=== PATIENT | male | born 1965 | race Caucasian/White ===

== ENCOUNTER 2019-01-28 10:51 | Inpatient (IN) | payer MEDICARE ==
[~2019-01-28] VITALS: Ht 165.1 cm; Wt 84.9 kg
[~2019-01-28 10:51] MED LIST: ASPIR 8181 MG PO; OMEPRAZOLE40 MG PO; OXYCODONE-ACET1 EAC1 PO
--- OUTSIDE RECORDS SUMMARY | 2019-01-28 10:53 | XMS REPORT ---
Author Author [facility] [place] Address Unknown Phone Unavailable Care Team Providers Care Therapeutic Recreation Specialist Name Role Phone EVER RODRIGUEZ Unavailable Unavailable Payers Payer Name Policy Type Policy Number Effective Date Expiration Date Problems This patient has no known problems. Allergies, Adverse Reactions, Alerts Allergy Name Allergy Type Status Severity Reaction(s) Onset Date Inactive Date Treating Clinician Comments No Known Allergies DA Active U 2018-08-12 00:00:00 Medications This patient has no known medications. Results Test Description Test Time Test Comments Text Results Atomic Results Result Comments MRI BRAIN WO [place] [address] Patient Name: LEONA BARTH MR #: [id number] : 1965 Age/Sex: 52/M Req #: [id number] Adm Physician: EVER RODRIGUEZ MD Ordered by: ERNESTO SRINIVASAN MD Report #: [id number] Location: [facility] Room/Bed: [place] [address] Procedure: [id number] MRI/MRI BRAIN WO Exam Date: 10/11/17 Exam Time: 1525 REPORT STATUS: Signed Exam: Brain MRI without IV contrast History: Memory problems, aphasia Comparison studies: Head CT of 10/11/2017 at 8:41 AM. Technique: Sagittal T2; axial DWI, FLAIR, T2*GRE, T1, Coronal T2 FLAIR. Intravenous contrast: None Findings: Scalp: Normal in signal . No masses . Bone marrow: Normal in signal intensity. Brain sulci: Appropriate for age. Ventricles: Normal in size. No hydrocephalus. Extra axial spaces: No mass, no fluid collection. Parenchyma: Restricted diffusion in the posterior left superior and middle temporal gyri which extends posteriorly to the angular gyrus of the left inferior parietal lobule consistent with acute nonhemorrhagic vascular insult in the distal left MCA territory. No mass or hemorrhage. Scattered T2 FLAIR hyperintense foci in the supratentorial white matter are nonspecific but most compatible with chronic small vessel ischemic changes. Small chronic lacunar infarct in the left thalamus. Suprasellar region: No abnormalities. Craniocervical junction: Patent foramen magnum. No Chiari malformation. Vessels: Focal increased T2 FLAIR/T1 signal within posterior left perisylvian M2 and proximal M3 branches may indicate thrombus or slow flow. Normal flow-voids in other major intracranial arteries and dural venous sinuses. IMPRESSION: 1. Unchanged acute left parietotemporal nonhemorrhagic ischemic insult in the left MCA territory with out significant mass effect. Signal abnormality within adjacent left M2/M3 MCA branches may reflect slow flow or thrombus. 2. Mild to moderate supratentorial chronic microvascular ischemic changes. 3. Small chronic left thalamic lacunar infarct. Findings discussed with nurse Srivastava at 5:23 PM on 10/11/2017. Signed by: Dr. Danuta Valentino M.D. on 10/11/2017 5:29 PM Dictated By: DANUTA VALENTINO MD 28 Transcribed By: CRISTINA on 10/11/171728 COPY TO: ERNESTO SRINIVASAN MD CHEST 2 VIEWS [place] [address] Patient Name: LEONA BARTH MR #: [id number] : 1965 Age/Sex: 52/M Req #: [id number] Adm Physician: Ordered by: DINO JACOBSON MD Report #: [id number] Location: ER Room/Bed: Procedure: [id number] DX/CHEST 2 VIEWS Exam Date: 10/11/17 Exam Time: 839 REPORT STATUS: Signed PROCEDURE: X-RAY CHEST, TWO VIEWS COMPARISON: None. INDICATIONS: AMS FINDINGS: LUNGS: No consolidations or edema. PLEURA: No effusions or pneumothorax. HEART T MEDIASTINUM: Cardiomediastinal contour is remarkable for mild tortuosity of the thoracic aorta. Normal heart size. No pulmonary edema. BONES T SOFT TISSUES: No acute findings. CONCLUSION: No acute cardiopulmonary abnormality. Dictated by: Danuta Yusuf M.D. on 10/11/2017 at 9:25 Electronically approved by: Danuta Yusuf M.D. on 10/11/2017 at 9:25 Dictated By: DANUTA YUSUF MD 4 Transcribed By: SEBASTIAN on 10/11/17924 COPY TO: DINO JACOBSON MD CT BRAIN WO [place] [address] Patient Name: LEONA BARTH MR #: [id number] : 1965 Age/Sex: 52/M Req #: [id number] Adm Physician: Ordered by: DINO JACOBSON MD Report #: [id number] Location: ER Room/Bed: Procedure: [id number] CT/CT BRAIN WO Exam Date: 10/11/17 Exam Time: 0840 REPORT STATUS: Signed History:Memory problems and aphasia for 2 days . Comparison studies:None Technique: Axial images were obtained from the skull base to the vertex. Coronal and sagittal images reconstructed from the axial data. Intravenous contrast: None Findings: Scalp/skull: No abnormalities. Extra- axial spaces: No masses. No fluid collections. Brain sulci: Mildly prominent. Ventricles: Mild compensatory dilatation. Asymmetric prominence of the left lateral ventricle. No hydrocephalus. Parenchyma: Cortical- based hypodensity at the left superior temporal gyrus with extension to the angular gyrus with obliteration of the adjacent sulci. Chronic small infarct at the left posterior cerebellar hemisphere. Scattered hypodensities in the supratentorial white matter are small vessel ischemic changes. No masses or hemorrhage, . Sellar/suprasellar region: No abnormalities. Craniocervical junction: Patent foramen magnum. No Chiari one malformation. Incidental findings: Atherosclerotic calcifications in the carotid siphons . Mild mucosal thickening of the lower most left mastoid air cells. Impression: Subacute infarct of the left superior frontal gyrus and angular gyrus, which may explain patient's symptoms. No intracranial hemorrhage. Chronic findings: 1. Mild generalized volume loss. 2. Mild to moderate supratentorial white matter small vessel ischemic changes. The above finding was reported and acknowledged by Dr. Jacobson at 9:10 AM 10/11/2017. Signed by: DR Dov Coppola M.D. on 10/11/2017 9:21 AM Dictated By: DOV MERRITT MD 0 Transcribed By: CRISTINA on 10/11/17920 COPY TO: DINO JACOBSON MD
[2019-01-28] MEDS ORDERED: MORPHINE SULFATE INJ 4 MG/ML INJ 1ML IV STA (10:55)
[2019-01-28] MEDS ORDERED: SODIUM CHLORIDE 0.9% 1000ML 1,000 ML IV STA (10:55)
[2019-01-28] MEDS ORDERED: ONDANSETRON HCL INJ 2MG/ML 2ML 2 MG/ML VIAL IV STA (10:55)
[2019-01-28] MEDS ORDERED: DIATRIZOATE MEGL/DIATRIZOA SOD 30 ML BTL PO ONE (11:10)
[2019-01-28 11:20] LABS: BASOPHILS % 0.3 % (0.0-1.0); EOSINOPHILS % 0.5 % (0.0-6.0); HEMATOCRIT 33.4 % (38.2-49.6); HEMOGLOBIN 10.3 g/dL (14.0-18.0); LYMPHOCYTES # (AUTO) 0.9 (1.0-3.2); LYMPHOCYTES % 11.3 % (18.0-39.1); MEAN CORPUSCULAR HEMOGLOBIN 23.8 pg (28-32); MEAN CORPUSCULAR HGB CONC 30.8 g/dL (31-35); MEAN CORPUSCULAR VOLUME 77.1 fL (81-99); MONOCYTES # (AUTO) 1.2 (0.2-0.8); MONOCYTES % 15.7 % (4.4-11.3); NEUTROPHILS # (AUTO) 5.6 (2.1-6.9); NEUTROPHILS % 71.9 % (38.7-80.0); PLATELET COUNT 502 x10e3/uL (140-360); RED BLOOD COUNT 4.33 x10e6/uL (4.3-5.7); RED CELL DISTRIBUTION WIDTH 17.8 % (11.7-14.4)
[2019-01-28 11:24] LABS: INR 0.87; PARTIAL THROMBOPLASTIN TIME 29.4 seconds (23.8-35.5); PROTHROMBIN TIME 12.3 seconds (11.9-14.5)
[2019-01-28 11:32] LABS: ALANINE AMINOTRANSFERASE 6 IU/L (0-55); ALBUMIN 2.5 g/dL (3.5-5.0); ALBUMIN/GLOBULIN RATIO 0.7 (0.8-2.0); ALKALINE PHOSPHATASE 72 IU/L (40-150); AMYLASE 30 U/L (25-125); ANION GAP 13.1 mmol/L (8-16); BLOOD UREA NITROGEN 8 mg/dL (7-26); BUN/CREATININE RATIO 7 (6-25); CALCIUM 8.2 mg/dL (8.4-10.2); CARBON DIOXIDE 25 mmol/L (22-29); CHLORIDE 99 mmol/L (98-107); CREATININE, SERUM 1.14 mg/dL (0.72-1.25); EST GLOMERULAR FILTRATION RATE > 60 ML/MIN (60-); GLUCOSE 109 mg/dL (74-118); LIPASE 9 U/L (8-78); POTASSIUM 3.1 mmol/L (3.5-5.1); SODIUM 134 mmol/L (136-145)
[2019-01-28 13:05] LABS: CLARITY,URINE SL CLOUDY (CLEAR); COLOR,URINE YELLOW (YELLOW)
[2019-01-28 13:06] LABS: BILIRUBIN,URINE NEGATIVE (NEGATIVE); KETONES,URINE NEGATIVE (NEGATIVE); LEUKOCYTE ESTERASE ,URINE NEGATIVE (NEGATIVE); NITRITE,URINE NEGATIVE (NEGATIVE); PROTEIN,URINE DIPSTICK 1+ (NEGATIVE); URINE UROBILINOGEN 0.2 mg/dL (0.2 - 1)
[2019-01-28 14:02] LABS: BACTERIA,URINE MANY /HPF
[2019-01-28 14:18] LABS: OCCULT BLOOD STOOL POSITIVE (NEGATIVE)
[2019-01-28 15:11] LABS: C DIFFICILE TOXIN A&B AMP PROB NEGATIVE (NEGATIVE)
[2019-01-28] MEDS ORDERED: IOPAMIDOL 370 MG/ML 200 ML INFUS..BTL INJ ONE (16:21)
[2019-01-28] MEDS ORDERED: SODIUM CHLORIDE 0.9% 50ML 50 ML ONE (16:21)
--- NOTE | 2019-01-28 16:26 | Diagnostic Imaging Report ---
EXAM: CT Abdomen and Pelvis WITH contrast INDICATION: Left lower quadrant pain COMPARISON: None. TECHNIQUE: Abdomen and pelvis were scanned utilizing a multidetector helical scanner from the lung base to the pubic symphysis after administration of IV contrast. Coronal and sagittal reformations were obtained. Routine protocol was performed. Scan was performed when during portal venous phase. Dose modulation, iterative reconstruction, and/or weight based adjustment of the mA/kV was utilized to reduce the radiation dose to as low as reasonably achievable. IV CONTRAST: 100 mL of Isovue-370 ORAL CONTRAST: 30 cc Gastrografin RADIATION DOSE: Total DLP: 714.70 mGy*cm Estimated effective dose: (DLP x 0.015 x size factor) mSv COMPLICATIONS: None FINDINGS: LINES and TUBES: None. LOWER THORAX: Lung bases clear. Heart size normal. HEPATOBILIARY: No focal hepatic lesions. No biliary ductal dilation. GALLBLADDER: No radio-opaque stones or sludge. No wall thickening. SPLEEN: No splenomegaly. PANCREAS: No focal masses or ductal dilatation. ADRENALS: No adrenal nodules KIDNEYS/URETERS: Kidneys enhance symmetrically. No hydronephrosis. No cystic or solid mass lesions. No stones. GI TRACT: There is diffuse wall thickening throughout the colon and rectum. There is also wall thickening of multiple jejunal loops without evidence for obstruction. Appendix is normal. PELVIC ORGANS/BLADDER: Urinary bladder is decompressed appearing generally unremarkable. No discrete abnormal mass or fluid collection in the pelvis. LYMPH NODES: No dominant lymph node mass is seen in the abdomen, retroperitoneum or pelvis. There are numerous mildly prominent nodes measuring up to 7 mm in the pelvis adjacent to the rectum. VESSELS: Abdominal aorta is atherosclerotic with scattered plaque. No aneurysm or dissection. Celiac artery, superior mesenteric artery and inferior mesenteric artery are patent. IVC and portal system unremarkable. PERITONEUM / RETROPERITONEUM: No pneumoperitoneum or ascites. BONES: No acute or suspicious bony lesions. There is anterior compression of the T12 vertebral body, age indeterminate. SOFT TISSUES: Superficial surrounding soft tissue shows a left inguinal hernia containing fat. IMPRESSION: 1. There is extensive wall thickening of the entire colon suggesting colitis that may be inflammatory or infectious. There are mildly enlarged pelvic lymph nodes adjacent to the rectosigmoid. 2. There is wall thickening without dilatation of multiple jejunal loops that may be related to inflammatory or infectious enteritis. Staff: Elsie Signed by: Dr. Saqib Zimmerman M.D. on 01/28/2019 4:22 PM
[2019-01-28 17:44] LABS: EOSINOPHILS % (MANUAL) 2 % (0-7); LYMPHOCYTES % (MANUAL) 12 % (19-48); MONOCYTES % (MANUAL) 17 % (3.4-9.0); NEUTROPHILS % (MANUAL) 69 % (40-74)
[2019-01-28 17:45] LABS: PLATELET ESTIMATE MODERATELY INCREASED; PLATELET MORPHOLOGY COMMENT NORMAL; RBC MORPHOLOGY COMMENT NORMAL
[2019-01-28] MEDS ORDERED: MORPHINE SULFATE 2 MG/ML SYR 1ML IV PRN (17:45)
[2019-01-28 17:53] LABS: HEMATOCRIT 29.3 % (38.2-49.6)
--- NOTE | 2019-01-28 18:15 | NUR ---
DR. RODRIGUEZ AT BEDSIDE FOR PT EVAL, AWAITING ORDERS.
[2019-01-28] MEDS: ONDANSETRON HCL INJ 2MG/ML 2ML 2 MG/ML VIAL IV PRN (18:16)
[2019-01-28] MEDS: SODIUM CHLORIDE 0.9% 1000ML 1,000 ML IV SCH (18:18)
[2019-01-28] MEDS: MORPHINE SULFATE INJ 4 MG/ML INJ 1ML IV PRN (18:20)
[2019-01-28] MEDS ORDERED: POTASSIUM CHLORIDE 20MEQ/100ML 100 ML IV ONE (18:45)
--- NOTE | 2019-01-28 19:05 | NUR ---
RECEIVED REPORT FROM ALEXANDRA GARCIA DAY SHIFT NURSE.
--- NOTE | 2019-01-28 19:05 | NUR ---
REPORT GIVEN TO ALEXANDRA AQUINO
[2019-01-28 19:13] LABS: HEMATOCRIT 29.3 % (38.2-49.6)
[2019-01-28] MEDS ORDERED: HYDROCORTISONE SOD SUCCINATE 250 MG VIAL IV SCH (21:00)
[2019-01-28] MEDS: MESALAMINE 0.375 GM CAPCR PO SCH (23:14)
[2019-01-28] MEDS: SODIUM CHLORIDE 0.9% IV SCH (23:14)
[2019-01-28] MEDS: HYDROCORTISONE SOD SUCCINATE IV SCH (23:14)
--- NOTE | 2019-01-28 23:50 | NUR ---
PER DAY SHIFT NURSENORMA RN, H&H ORDERED Q4HR BY DR. RODRIGUEZ ENTERED INTO COMPUTER.
[2019-01-28 23:57] LABS: HEMATOCRIT 29.6 % (38.2-49.6)
--- NOTE | 2019-01-29 02:01 | History and Physical ---
HISTORY OF PRESENT ILLNESS: See also previously dictated past medical history. The patient notes several days of abdominal pain, especially in the left lower quadrant with some nausea and persistent bloody diarrhea. Denies headache or visual change. No chest pain or shortness of breath. , negative per patient. Neuromuscular, per patient chronic back ache as mentioned in past history. FAMILY HISTORY: Diabetes and hypertension. See also dictation of past history as mentioned. PHYSICAL EXAMINATION: VITAL SIGNS: Temperature 97.1, pulse is 104 and regular, respiratory rate 16, BP 109/79, and O2 sat 97%. HEENT: Mild pallor. Pupils, round and reactive. EOMs adequate. Throat clear. NECK: . Carotids palpable. No bruit. No palpable goiter. PULMONARY: Also, the patient is grossly clear. CARDIAC: Sounds S1 and S2 normal. ABDOMEN: Tender, especially in the left lower quadrant with reduced bowel sounds. EXTREMITIES: Free of edema, clubbing, or cyanosis. Strength fair. DTRs 1+. Pulses palpable. LABORATORY DATA: See also ER notes and orders. Hemoglobin 10.3 on January 28 at 11:00 a.m. At 05:10 p.m., hemoglobin has fallen to 9 g. Platelet count is 502,000. White count is 7.78. Low red cell indices. INR 0.87. Urinalysis cllear. CD negative. Potassium is 3.1, albumin 2.5, amylase 30, lipase 9. Blood type, A positive. CT, see also report. Extensive wall thickening of entire colon. Mildly large pelvic lymph nodes adjacent to the rectosigmoid. Wall thickening without dilatation, multiple jejunal loops. CURRENT IMPRESSION: As mentioned per past history. Exacerbation of inflammatory bowel disease, most likely. Secondary anemia. History of stroke. Iron deficiency secondary to inflammatory bowel disease. Hypokalemia. CURRENT PLANS: To support the patient hemodynamically as needed. He may require transfusions. 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 Replete potasium. The patient states he has not been taking prescription medicines recently. See also order history including analgesics. Intravenous fluids. Close follow up on h/h. MD BRENDON Vicente/CLAUDIOL /[id number] MTDTerry
--- NOTE | 2019-01-29 02:06 | History and Physical ---
HISTORY: I was called by the ER physician today to see the patient, who is being hospitalized with GI bleeding of several days duration. The patient has a history of inflammatory bowel disease. 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 He also had prior stayed here in September 2017. The patient was last seen in my office on October 30, 2017. At that time, medications included Humira, oxycodone, multivitamins, Zocor 10 mg daily, diltiazem 30 mg b.i.d., lisinopril 10 mg daily, and omeprazole 20 mg daily. Humira per concrete block plant supervisor. Ferrous sulfate orally. The patient had been admitted here as mentioned on October 13, 2017, with a stroke. Primary neurological difficulty was speech. He also notes it from that stay. Echocardiogram then revealed LVH. Carotid Doppler scan without significant stenosis done. Left superior frontal gyrus and angular gyrus, subacute infarct, shaka on head CT with mild generalized volume loss. He also had Neurology consultation at that time. In August 2018, flu shot given by [facility]. PPD within normal limits in 2011 per patient. Prior surgeries have included normal heart cath on June 20, 2011. Ongoing problems include primary hypertension, hypolipoproteinemia, obesity, chronic pain, chronic opioid use, prior T12 compression fracture, osteoporosis, degenerative joint disease involving the lumbosacral spine, and iron deficiency anemia. EGD performed on March 09, 2012, revealing inflammation of the esophagus in the stomach as well as the duodenum. Hiatal hernia was seen at that time. History includes bilateral carpal tunnel syndrome by prior EMG. The patient has been a heavy smoker. The case was discussed with the emergency room physician when he called me today at 5:45. Office chart reviewed. Dictation of current examination to follow separately. MD BRENDON Vicente/ADILENE /[id number]
[2019-01-29] MEDS: ONDANSETRON HCL INJ 2MG/ML 2ML 2 MG/ML VIAL IV PRN ×3 (02:44→14:00)
[2019-01-29] MEDS: MORPHINE SULFATE INJ 4 MG/ML INJ 1ML IV PRN ×4 (02:44→20:52)
[2019-01-29] MEDS: SODIUM CHLORIDE 0.9% 1000ML 1,000 ML IV SCH ×3 (04:30→18:00)
[2019-01-29 04:39] LABS: HEMOGLOBIN 7.9 g/dL (14.0-18.0)
[2019-01-29 04:54] LABS: ANION GAP 10.3 mmol/L (8-16); BLOOD UREA NITROGEN 10 mg/dL (7-26); BUN/CREATININE RATIO 12 (6-25); CALCIUM 7.3 mg/dL (8.4-10.2); CARBON DIOXIDE 22 mmol/L (22-29); CHLORIDE 103 mmol/L (98-107); CREATININE, SERUM 0.84 mg/dL (0.72-1.25); EST GLOMERULAR FILTRATION RATE > 60 ML/MIN (60-); GLUCOSE 110 mg/dL (74-118); POTASSIUM 3.3 mmol/L (3.5-5.1); SODIUM 132 mmol/L (136-145)
[2019-01-29] MEDS ORDERED: SODIUM CHLORIDE 0.9% 250ML 250 ML IV ONE (05:15)
--- NOTE | 2019-01-29 07:00 | NUR ---
REPORT GIVEN TO ALEXANDRA URRUTIA DAY SHIFT NURSE.
--- NOTE | 2019-01-29 08:10 | NUR ---
PT REPORTS BLOODY STOOLS WITH MODERATE AMOUNT OF BLOOD.
[2019-01-29] MEDS: HYDROCORTISONE SOD SUCCINATE IV SCH ×3 (09:50→21:07)
[2019-01-29] MEDS: SODIUM CHLORIDE 0.9% IV SCH ×3 (09:50→21:07)
[2019-01-29] MEDS: MESALAMINE 0.375 GM CAPCR PO SCH (10:00)
[2019-01-29] MEDS ORDERED: SODIUM CHLORIDE 0.9% 250ML 250 ML ONE (10:24)
--- NOTE | 2019-01-29 10:30 | NUR ---
SECOND UNIT OF BLOOD TRANSFUSION STARTING AT THIS TIME, SEE BLOOD TRANSFUSION MONITORING FLOWSHEET.
--- NOTE | 2019-01-29 12:50 | NUR ---
PT REPORTS BLOODY STOOL WITH MUCUS AT THIS TIME.
--- NOTE | 2019-01-29 12:52 | NUR ---
THIRD UNIT OF BLOOD INITATED AT THIS TIME, SEE BLOOD TRANSFUSION FLOWSHEET.
--- NOTE | 2019-01-29 13:55 | NUR ---
FOURTH UNIT OF BLOOD BEING INITATED AT THIS TIME, SEE BLOOD TRANSFUSION FLOWSHEET. PT REPORTING FEELING BETTER AT THIS TIME, STATES INCREASED STRENGTH AND FEELING MORE LIKE HIMSELF.
[2019-01-29] MEDS ORDERED: SODIUM CHLORIDE 0.9% 50ML 50 ML ONE (14:25)
[2019-01-29] MEDS ORDERED: POTASSIUM CHLORIDE 20MEQ/100ML 100 ML IV ONE (14:45)
--- NOTE | 2019-01-29 17:08 | NUR ---
CASE MANAGEMENT INITIAL ASSESSMENT Building Architectural Designer to bedside to discuss plan of care with patient/family. CM/SW role and care transitions discussed. Anticipated discharge plan discussed along with duration of care. CM/SW discussed patients right to make decisions in care. CM/SW work hours given. Patient lives: [facility] Admit/Transfer: ER Hospital/ER visits since last admit:0 POA/Emergency contact: PRANAV NATION ROOM MATE [phone] Current/Previous Home Health: NONE PCP/Follow-up Care: EVER RODRIGUEZ Current/Previous DME: NONE Medications (referring to index hospitalization or the first time you were in the hospital) a. Were changes made in your medications when you were in the hospital on [date of index hospitalization]? Yes No Not sure Explain: Note: If no or not sure, please skip to question d b. Did you understand the changes? Yes No Explain: c. Were you able to obtain your new medications right away? Yes No n/a SNF only Explain: d. Were you able to take your medications like the doctor wanted you to? TAKE MEDS PRESCRIBED BY PCP e. Did the hospital give you an accurate, easy to understand list of medications when you left? N/A Scale of 1-10 how comfortable does patient feel with disease management in outpatient settin Other Services: NONE Employment Status: DISABILITY Areas of Concerns: NONE Referral Needs: MAY NEED HOME HEALTH UPON DISCHARGE Education Needs: REGARDING DC MEDS AND DIET FOR COLITIS IMM/PARSON given and signed (if applicable): ON ADMIT Goal for discharge:DC HOME, FEELING BETTER SOON POSSIBLE CM/SW left business card at the bedside with contact information. Name and number was also written on the patients whiteboard. Patient verbalized understanding of discussion. CM will follow-up with ongoing discharge and transition of care needs.
--- NOTE | 2019-01-29 17:50 | NUR ---
DR. RODRIGUEZ ROUNDING AT THIS TIME, RECEIVED ORDERS TO INFORM OF H/H WHEN RESULTED. PT REQUESTING DIET CHANGE, PER DR. RODRIGUEZ PT MAY PROGRESS TO CLEAR LIQUID DIET IF PERMITTED BY GI DOCTOR. WILL CONACT GI DOCTOR FOR DIET ORDERS.
--- NOTE | 2019-01-29 17:55 | NUR ---
DR. RODRIGUEZ AT BEDSIDE, INFORMED OF TRANSFUSION OF 4 UNITS OF PRBCS, STATED TO CALL BACK WITH RESULTS OF H/H. WILL CONTINUE TO MONITOR.
[2019-01-29 18:36] LABS: HEMOGLOBIN 11.7 g/dL (14.0-18.0)
--- NOTE | 2019-01-29 18:45 | NUR ---
DR. RODRIGUEZ CALLED AND NOTIFIED OF UPDATED H/H RESULTS, NO NEW ORDERS RECEIVED AT THIS TIME.
--- NOTE | 2019-01-29 19:05 | NUR ---
DR. BOURGEOIS AT BEDSIDE MAKING ROUNDS AT THIS TIME, AWAITING ORDERS AT THIS TIME.
[2019-01-29 22:10] VITALS: BP 144/88
[2019-01-29 22:27] VITALS: BP 144/88
[2019-01-30] VITALS (7 sets, daily range): BP systolic 109–141; BP diastolic 79–95
[2019-01-30] MEDS: MORPHINE SULFATE INJ 4 MG/ML INJ 1ML IV PRN ×5 (01:08→20:06)
[2019-01-30] MEDS: SODIUM CHLORIDE 0.9% 1000ML 1,000 ML IV SCH ×3 (03:00→20:05)
[2019-01-30 05:11] LABS: BASOPHILS % 0.3 % (0.0-1.0); HEMATOCRIT 33.9 % (38.2-49.6); MEAN CORPUSCULAR HEMOGLOBIN 25.6 pg (28-32); MEAN CORPUSCULAR HGB CONC 32.4 g/dL (31-35); MONOCYTES # (AUTO) 1.1 (0.2-0.8); MONOCYTES % 15.9 % (4.4-11.3); NEUTROPHILS # (AUTO) 4.8 (2.1-6.9); NEUTROPHILS % 69.4 % (38.7-80.0); PLATELET COUNT 354 x10e3/uL (140-360); RED BLOOD COUNT 4.29 x10e6/uL (4.3-5.7); RED CELL DISTRIBUTION WIDTH 17.2 % (11.7-14.4)
--- NOTE | 2019-01-30 07:00 | NUR ---
RN performed comprehensive assessment on patient. Alert/oriented x3 with vital signs WNL. IV is intact. Patient reported no pain. Mild tenderness noted during palpation on the left lower quadrant of the abdomen. Patient stated at times he feel bloated and is unable to get rid of the gas and would like something to help relieve the gas.
[2019-01-30] MEDS ORDERED: HYDROCORTISONE SOD SUCCINATE 100 MG VIAL ONE (08:24)
[2019-01-30] MEDS: MESALAMINE 0.375 GM CAPCR PO SCH (08:36)
[2019-01-30] MEDS: HYDROCORTISONE SOD SUCCINATE IV SCH ×3 (08:36→20:51)
[2019-01-30] MEDS: SODIUM CHLORIDE 0.9% IV SCH ×3 (08:36→20:51)
--- NOTE | 2019-01-30 10:35 | NUR ---
Patient is requesting a medication to assist with the acid reflux. The patient can not remember which medication it was. RN will contact doctor for suggested medication
--- NOTE | 2019-01-30 10:43 | NUR ---
EDUCATED ABOUT IMM, SIGNED, FILED IN CHART, WITH COPY LEFT WITH FAMILY AT BEDSIDE.
[2019-01-30] MEDS: PANTOPRAZOLE SOD 40 MG TABEC PO SCH (10:52)
[2019-01-30 10:58] LABS: BAND NEUTROPHILS % (MANUAL) 9 %; LYMPHOCYTES % (MANUAL) 12 % (19-48); MONOCYTES % (MANUAL) 16 % (3.4-9.0); MYELOCYTES % (MANUAL) 1 % (0-0); NEUTROPHILS % (MANUAL) 60 % (40-74)
[2019-01-30 10:59] LABS: HYPOCHROMASIA SLIGHT; PLATELET ESTIMATE ADEQUATE; PLATELET MORPHOLOGY COMMENT NORMAL; RBC MORPHOLOGY COMMENT NORMAL
--- NOTE | 2019-01-30 14:59 | NUR ---
Patient stated his acid reflux has returned and is worsening. The patient would like to have something such as Protonix to help relieve the acid reflux.
[2019-01-30] MEDS ORDERED: FAMOTIDINE 20 MG TAB PO PRN (15:15)
[2019-01-30] MEDS ORDERED: SIMETHICONE 80 MG CHEW PO PRN (16:30)
--- NOTE | 2019-01-30 17:49 | Diagnostic Imaging Report ---
Exam: KUB - 3 views Clinical History: Ulcerative colitis. Comparison: CT abdomen/pelvis with contrast 01/28/2019. Findings: Nonobstructive bowel gas pattern. There are diffusely thickened colonic loops with loss of the normal haustra. Colonic loops are also dilated measuring up to 10.2 cm, which are increased compared to CT abdomen/pelvis from 01/28/2019. No evidence of free intraperitoneal air. No acute osseous abnormality. Impression: Diffusely thickened colonic loops, consistent with clinical history of ulcerative colitis. Colonic loops are increasingly dilated, measuring up to 10.2 cm. No evidence of pneumatosis or pneumoperitoneum. Per discussion with clinical team, the patient has only mild abdominal pain without peritoneal signs, and is bloated on exam. Findings could reflect nonobstructive ileus, however follow-up radiographs are recommended to exclude toxic megacolon. The above findings were discussed with covering ALEXANDRA Stein on 01/30/2019 5:45 PM, who responded indicating that the communication was understood. Signed by: Dr. Rima Thomas MD on 01/30/2019 5:46 PM
--- NOTE | 2019-01-30 19:06 | NUR ---
ROUNDS DONE, PATIENT RESTING IN BED, GETTING LAB DRAWN, WILL CONTINUE TO MONITOR. CALL LIGHT REMAIN IN REACH.
[2019-01-30 19:30] LABS: BASOPHILS % 0.5 % (0.0-1.0); HEMATOCRIT 38.3 % (38.2-49.6); HEMOGLOBIN 12.2 g/dL (14.0-18.0); LYMPHOCYTES % 12.3 % (18.0-39.1); MEAN CORPUSCULAR HEMOGLOBIN 26.1 pg (28-32); MEAN CORPUSCULAR HGB CONC 31.9 g/dL (31-35); MEAN CORPUSCULAR VOLUME 81.8 fL (81-99); MONOCYTES # (AUTO) 0.9 (0.2-0.8); MONOCYTES % 11.1 % (4.4-11.3); NEUTROPHILS # (AUTO) 6.1 (2.1-6.9); NEUTROPHILS % 75.5 % (38.7-80.0); PLATELET COUNT 361 x10e3/uL (140-360); RED BLOOD COUNT 4.68 x10e6/uL (4.3-5.7); RED CELL DISTRIBUTION WIDTH 17.8 % (11.7-14.4)
[2019-01-30 19:48] LABS: ANION GAP 11.8 mmol/L (8-16); BLOOD UREA NITROGEN 8 mg/dL (7-26); BUN/CREATININE RATIO 11 (6-25); CALCIUM 7.2 mg/dL (8.4-10.2); CARBON DIOXIDE 18 mmol/L (22-29); CHLORIDE 104 mmol/L (98-107); CREATININE, SERUM 0.71 mg/dL (0.72-1.25); EST GLOMERULAR FILTRATION RATE > 60 ML/MIN (60-); GLUCOSE 132 mg/dL (74-118); POTASSIUM 3.8 mmol/L (3.5-5.1); SODIUM 130 mmol/L (136-145)
[2019-01-30 20:02] LABS: AMYLASE 27 U/L (25-125); LIPASE 9 U/L (8-78)
[2019-01-30] MEDS: ONDANSETRON HCL INJ 2MG/ML 2ML 2 MG/ML VIAL IV PRN (20:05)
--- NOTE | 2019-01-30 23:20 | NUR ---
PATIENT RESTING IN BED, NO DISTRESS NOTED, CONTINUE RECEIVING IV FLUIDS. CALL LIGHT IN REACH. WILL CONTINUE TO MONITOR.
[2019-01-31] VITALS (9 sets, daily range): BP systolic 105–159; BP diastolic 55–97
[2019-01-31] MEDS: MORPHINE SULFATE INJ 4 MG/ML INJ 1ML IV PRN ×3 (00:39→21:55)
--- NOTE | 2019-01-31 02:49 | NUR ---
PATIENT WALKING AROUND THE UNIT. NO DISTRESS NOTED, NO COMPLAINTS OF ABDOMINAL DISCOMFORT.
[2019-01-31 05:04] LABS: BASOPHILS % 0.1 % (0.0-1.0); HEMATOCRIT 34.5 % (38.2-49.6); HEMOGLOBIN 10.9 g/dL (14.0-18.0); LYMPHOCYTES # (AUTO) 1.4 (1.0-3.2); LYMPHOCYTES % 17.3 % (18.0-39.1); MEAN CORPUSCULAR HEMOGLOBIN 25.8 pg (28-32); MEAN CORPUSCULAR HGB CONC 31.6 g/dL (31-35); MEAN CORPUSCULAR VOLUME 81.8 fL (81-99); MONOCYTES # (AUTO) 1.1 (0.2-0.8); MONOCYTES % 13.3 % (4.4-11.3); NEUTROPHILS # (AUTO) 5.5 (2.1-6.9); NEUTROPHILS % 68.8 % (38.7-80.0); PLATELET COUNT 336 x10e3/uL (140-360); RED BLOOD COUNT 4.22 x10e6/uL (4.3-5.7); RED CELL DISTRIBUTION WIDTH 17.8 % (11.7-14.4)
[2019-01-31 05:20] LABS: BLOOD UREA NITROGEN 7 mg/dL (7-26); BUN/CREATININE RATIO 9 (6-25); CALCIUM 7.2 mg/dL (8.4-10.2); CARBON DIOXIDE 24 mmol/L (22-29); CHLORIDE 105 mmol/L (98-107); CREATININE, SERUM 0.75 mg/dL (0.72-1.25); EST GLOMERULAR FILTRATION RATE > 60 ML/MIN (60-); GLUCOSE 106 mg/dL (74-118); SODIUM 134 mmol/L (136-145)
[2019-01-31] MEDS: SODIUM CHLORIDE 0.9% 1000ML 1,000 ML IV SCH (05:39)
--- NOTE | 2019-01-31 07:52 | Diagnostic Imaging Report ---
Exam: KUB - 3 views Clinical History: Ulcerative colitis. Ileus. Comparison: CT abdomen/pelvis with contrast 01/28/2019, KUB 01/30/2019. Findings: Nonobstructive bowel gas pattern. There are diffusely thickened colonic loops with loss of the normal haustra. Colonic loops are also dilated, slightly increased compared to prior KUB, now measuring up to 11.5 cm, previously 10.2 cm. No evidence of free intraperitoneal air. No acute osseous abnormality. Impression: Diffusely thickened colonic loops, consistent with clinical history of ulcerative colitis. Colonic loops are increasingly dilated, measuring up to 1.5 cm. No evidence of pneumatosis or pneumoperitoneum. In the absence of significant pain, the findings likely represent non-obstructive ileus, although continued follow-up is suggested. Signed by: Dr. Rima Thomas MD on 01/31/2019 7:48 AM
[2019-01-31] MEDS: PANTOPRAZOLE 40 MG 10ML VIAL IV SCH (08:34)
[2019-01-31 09:08] LABS: BAND NEUTROPHILS % (MANUAL) 5 %; LYMPHOCYTES % (MANUAL) 20 % (19-48); MONOCYTES % (MANUAL) 9 % (3.4-9.0); MYELOCYTES % (MANUAL) 2 % (0-0); NEUTROPHILS % (MANUAL) 61 % (40-74)
[2019-01-31 09:10] LABS: ANISOCYTOSIS SLIGHT; HYPOCHROMASIA SLIGHT; PLATELET ESTIMATE ADEQUATE; PLATELET MORPHOLOGY COMMENT NORMAL; RBC MORPHOLOGY COMMENT NORMAL
[2019-01-31] MEDS: HYDROCORTISONE SOD SUCCINATE IV SCH ×3 (09:51→21:45)
[2019-01-31] MEDS: SODIUM CHLORIDE 0.9% IV SCH ×3 (09:51→21:45)
--- NOTE | 2019-01-31 11:10 | Diagnostic Imaging Report ---
EXAM: CHEST 2 VIEWS DATE: 01/31/2019 10:14 AM INDICATION: Ulcerative colitis COMPARISON: None FINDINGS: Lines and tubes: None Heart size normal. No focal pulmonary opacity, pleural effusion or pneumothorax. Upper abdomen unremarkable. No acute bony abnormality. IMPRESSION: No evidence for acute disease. Signed by: Dr. Saqib Zimmerman M.D. on 01/31/2019 11:06 AM
--- NOTE | 2019-01-31 12:39 | Consultation ---
DATE OF CONSULTATION: REASON FOR CONSULTATION: Ulcerative colitis stand by. HISTORY OF PRESENT ILLNESS: The patient is a pleasant, but noncompliant 53-year-old male with a longstanding history of ulcerative colitis disease, noncompliant with his medical treatment, who was admitted to the hospital with a lower GI bleed secondary to above. The patient states that he has had the disease for over 30 years and is currently being followed by Dr. Alejandro Pickett from GI. He apparently has abandoned all his medicines prescribed for ulcerative disease.Currently he is pain free and is tolerating a regular diet well l.He denies [id number] pain .THe lower GI bleed has ceased at this time and his hematocrit is stable.. He hasbeen transfused PRBCs. PAST MEDICAL HISTORY: Significant for stroke. He denies high blood pressure. PAST SURGICAL HISTORY: Significant for laparotomy in the past for trauma. He does not know exactly the nature of the laparotomy or the findings.. ROS : As per history of present illness. . PHYSICAL EXAMINATION: GENERAL: Reveals a 53-year-old male, awake, alert, in no acute distress. HEAD, EYES, EARS, NOSE, AND THROAT: Unremarkable. LUNGS: Clear. ABDOMEN: Obese, soft, and nontender. There are no palpable masses. EXTREMITIES: Reveal no clubbing, cyanosis, or edema. LABORATORY DATA: Admission laboratories reveal normal electrolytes at this point with white count of 7.99 and hematocrit of 35 with a normal platelet count. Admission CT scan revealed changes consistent with pancolitis. ASSESSMENT: Ulcerative colitis with a noncompliant patient. Lower gastrointestinal bleed secondary to above.now resolved.: At this time, the patient is hemodynamically stable and there is no active bleeding. There is no surgical emergency.. RECOMMENDATIONS: Discharge patient as per Dr. Pickett's recommendation. GIven the fact he is non complaint and has a significant risk of colon cancer about 20 % after 30 years of the disease he should be a candidate for total colectomy with ileoanal pouch by colorectal surgery. I have discussed this with the patient. Thank youfo this consult. MD AUGUSTINA Cardoso/ADILENE /[id number] TAVO
[2019-01-31] MEDS: DEXTROSE 5%/0.45% SOD CHL 1,000 ML IV SCH (13:37)
[2019-01-31] MEDS: MESALAMINE 0.375 GM CAPCR PO SCH (16:44)
--- NOTE | 2019-01-31 16:45 | NUR ---
Called Dr. Riggs to make him aware bilateral legs appear edematous patient on IVF D5 infusing at 80MLS/hr. no new orders received.
[2019-02-01] VITALS: BP 126/83
[2019-02-01 03:12] VITALS: BP 128/77
[2019-02-01 05:04] LABS: BASOPHILS % 0.2 % (0.0-1.0); HEMATOCRIT 34.1 % (38.2-49.6); HEMOGLOBIN 10.9 g/dL (14.0-18.0); LYMPHOCYTES # (AUTO) 1.4 (1.0-3.2); MEAN CORPUSCULAR HEMOGLOBIN 25.8 pg (28-32); MEAN CORPUSCULAR VOLUME 80.6 fL (81-99); MONOCYTES # (AUTO) 0.9 (0.2-0.8); MONOCYTES % 10.3 % (4.4-11.3); NEUTROPHILS # (AUTO) 6.1 (2.1-6.9); NEUTROPHILS % 72.4 % (38.7-80.0); PLATELET COUNT 333 x10e3/uL (140-360); RED BLOOD COUNT 4.23 x10e6/uL (4.3-5.7); RED CELL DISTRIBUTION WIDTH 18.2 % (11.7-14.4)
[2019-02-01 05:35] LABS: AMYLASE 45 U/L (25-125); ANION GAP 9.5 mmol/L (8-16); BLOOD UREA NITROGEN 10 mg/dL (7-26); BUN/CREATININE RATIO 12 (6-25); CALCIUM 7.2 mg/dL (8.4-10.2); CARBON DIOXIDE 24 mmol/L (22-29); CHLORIDE 106 mmol/L (98-107); CREATININE, SERUM 0.82 mg/dL (0.72-1.25); EST GLOMERULAR FILTRATION RATE > 60 ML/MIN (60-); GLUCOSE 134 mg/dL (74-118); POTASSIUM 4.5 mmol/L (3.5-5.1); SODIUM 135 mmol/L (136-145)
[2019-02-01 05:55] VITALS: BP 138/81
[2019-02-01] MEDS: MORPHINE SULFATE INJ 4 MG/ML INJ 1ML IV PRN (05:55)
--- NOTE | 2019-02-01 06:25 | Diagnostic Imaging Report ---
EXAM: ABDOMEN 2 VIEW, DATE: 02/01/2019 7:00 AM INDICATION: Ulcerative colitis. Ileus. COMPARISON: 01/31/2019. FINDINGS: LINES/TUBES: None BOWEL PATTERN: Redemonstration of moderate diffuse dilatation of the colon, with thumbprinting in the descending and transverse colon, unchanged. No small bowel dilatation. SOFT TISSUES: No abnormal calcifications. No mass effect. LUNG BASES: Not included BONES: No acute findings. IMPRESSION: No significant interval change in moderate diffuse dilatation of the colon, with thumbprinting in the descending and transverse colon, unchanged. Signed by: Dr. Caden Moyer M.D. on 02/01/2019 6:21 AM
[2019-02-01 08:00] VITALS: BP 121/78
[2019-02-01] MEDS: PANTOPRAZOLE 40 MG 10ML VIAL IV SCH (08:37)
[2019-02-01] MEDS: SODIUM CHLORIDE 0.9% IV SCH ×2 (08:37→16:30)
[2019-02-01] MEDS: MESALAMINE 0.375 GM CAPCR PO SCH (08:37)
[2019-02-01] MEDS: HYDROCORTISONE SOD SUCCINATE IV SCH ×2 (08:37→16:30)
[2019-02-01] MEDS: DEXTROSE 5%/0.45% SOD CHL 1,000 ML IV SCH ×2 (09:00→11:27)
[2019-02-01 12:00] VITALS: BP 107/92
--- NOTE | 2019-02-01 12:40 | NUR ---
EDUCATED ABOUT IMM, SIGNED, FILED IN CHART, WITH COPY LEFT WITH FAMILY AT BEDSIDE.
[2019-02-01 16:00] VITALS: BP 118/80
[2019-02-01] MEDS ORDERED: PENTASA500 MG PO (18:43)
[2019-02-01] MEDS ORDERED: MORPHINE SULFATE INJ 4 MG/ML INJ 1ML IV PRN (18:45)
[2019-02-01] MEDS ORDERED: PREDNISONE20 MG PO (18:47)
--- NOTE | 2019-02-01 18:52 | NUR ---
MD ALFRED ROUNDING ON PATIENT PER MD PATIENT CAN GO HOME THIS DAY, MD AWARE PATIENT MIGHT HAVE TROUBLE GETTING A RIDE IF THAT HAPPENS PATIENT TO GO FIRST THING IN THE MORNING.
--- NOTE | 2019-02-01 19:20 | NUR ---
Received change of shift report from AM nurse. Rounds completed.
--- NOTE | 2019-02-01 19:47 | NUR ---
Patient has d/c orders. Ride call to go home.
--- NOTE | 2019-02-01 19:56 | NUR ---
IV d/c . Pressure dressing applied.
--- NOTE | 2019-02-01 20:35 | NUR ---
Maninder called to transport patient home.
--- NOTE | 2019-02-02 03:43 | Discharge Summary ---
HOSPITAL COURSE: The patient was hospitalized through the emergency room where I saw him. See also ER notes. He was hospitalized for an exacerbation of his chronic ulcerative colitis. The patient was supported with analgesics as ordered per ER. He was also initiated on treatment with steroids and mesalamine was ordered by his printed forms proofreader. He required transfusions. He has a prior history of stroke associated with severe anemia and hemoglobin level appropriately elevated with transfusions. The patient on serial KUB experienced moderate colonic dilatation without any symptoms of ileus. He continued to have bowel movements and resumed appetite. GI progressively advanced diet, which was very well tolerated. He was kindly assessed by consultants in Surgery while here, see notes. The patient had course of improvement and ultimately requested outpatient management. Hemoglobin was 7.9 on January 29. The white count has remained normal. Admission hemoglobin on January 28 was 10.3. He was having active bleeding when transfusions were initiated. Platelet count was 333,000 on February 01 with hemoglobin of 10.9 and white count of 8.4. INR 0.87. Urinalysis clear. The patient had grossly bloody stools in the emergency room and through the first hospital day. CD toxin per ER was negative. Chemistries were monitored. The patient's glucose mandie to a peak of 134 on steroids. Natriuretic peptide 199. Amylase and lipase remained normal. Transient hypokalemia repleted. Globulin 3.6 and albumin 2.5 on admission. Potassium 3.1 on January 28, 3.8 on January 30, and 4.5 on February 01. BUN and creatinine remained normal. ER obtained abdominal CT, see report. Extensive wall thickening of the entire colon. Pelvic lymph nodes enlarged. Dilatation of jejunal loops, multiple. Serial KUBs as above with moderate colonic dilatation. Unchanged on February 01. Chest x-ray clear. The patient was counseled regarding the need for compliance. He had stopped his meds prior to admission for over a year. He had been on Humira in the past. PLAN: Continue steroids and mesalamine and the patient will follow up with his printed forms proofreader. I have asked him to see me within a few days to follow up hematocrits and reexamine. He was advised to call or return for any significant difficulty. FINAL IMPRESSION: Ulcerative colitis. Secondary severe bleeding with significant anemia. History of stroke previously associated with bleeding and anemia prior to this admission. Hypolipoproteinemia. Hypertension. Left ventricular hypertrophy. Prior T12 compression fracture and osteoporosis with a degenerative joint disease of the lumbar spine. Chronic iron deficiency, secondary to ulcerative colitis. Hiatal hernia with reflux, which was transiently symptomatic this admission and improved on PPIs. Prior heavy smoker. Prior chronic use of oxycodone. The patient will resume his prior to admission regimen also. Prognosis is guarded, as compliance has been limited previously. Mike Riggs MD BRENDON/MODL /[id number]
== END 2019-02-01 21:55 | disposition home or self-care (01) | DRG 386 ==
LOC: ER 10:51 → ERHOLD 17:42 → OBSVTOIN 20:01 → IMCU 01-29 20:28
PROVIDERS: ADMIT Internal Medicine; ATTEND Internal Medicine
PROC: 30250N1 (ICD-10-PCS; principal; 2019-01-29)
DX: K51.80 Other ulcerative colitis without complications (principal); K92.1 Melena; I95.1 Orthostatic hypotension; E87.6 Hypokalemia; Z86.73 Personal history of transient ischemic attack (TIA), and cerebral infarction without residual deficits; Z91.19 Patient's noncompliance with other medical treatment and regimen; E78.6 Lipoprotein deficiency; I10 Essential (primary) hypertension; K44.9 Diaphragmatic hernia without obstruction or gangrene; K21.9 Gastro-esophageal reflux disease without esophagitis; Z87.891 Personal history of nicotine dependence; M80.08XD Age-related osteoporosis with current pathological fracture, vertebra(e), subsequent encounter for fracture with routine healing; D63.8 Anemia in other chronic diseases classified elsewhere
CPT/HCPCS: 36415; 71046; 74019; 74177; 80048; 80053; 81001; 82150; 82270; 83690; 83880; 85014; 85018; 85025; 85610; 85730; 86850; 86900; 86920; 87045; 87493; 93005; 99284; J1720; J2270; J2405; J3480; J7030; J7050; P9016; Q9967

== ENCOUNTER 2019-07-29 08:47 | Inpatient (IN) | payer MEDICARE ==
[2019-07-29] VITALS (7 sets, daily range): BP systolic 82–122; BP diastolic 61–99
[~2019-07-29] VITALS: Ht 165.1 cm; Wt 84.8 kg
[~2019-07-29 08:47] MED LIST changes: +PENTASA500 MG PO; +PREDNISONE20 MG PO
[2019-07-29] MEDS ORDERED: SODIUM CHLORIDE 0.9% 1000ML 1,000 ML IV STA ×4 (08:49→10:43)
[2019-07-29] MEDS ORDERED: MORPHINE SULFATE INJ 4 MG/ML INJ 1ML IV ONE ×2 (09:30→10:00)
--- NOTE | 2019-07-29 09:55 | NUR ---
NOTIFIED DR CARDENAS UNABLE TO ACCESS PERIPHERIAL IV ACCESS, OK TO ACCESS EJ PER DR CARDENAS.
[2019-07-29] MEDS ORDERED: CEFEPIME 2 GM/NS 0.9% 100 ML 100 ML IV ONE (10:00)
[2019-07-29] MEDS ORDERED: ONDANSETRON HCL INJ 2MG/ML 2ML 2 MG/ML VIAL IV ONE (10:00)
[2019-07-29] MEDS ORDERED: ONDANSETRON HCL INJ 2MG/ML 2ML 2 MG/ML VIAL IV PRN (10:00)
[2019-07-29] MEDS ORDERED: METRONIDAZOLE 500MG/NS 100ML 100 ML IV ONE (10:00)
--- NOTE | 2019-07-29 10:02 | NUR ---
NOTIFIED DR CARDENAS PATIENT PALE,DIAPHORETIC, TACHYCARDIC 130'S, HYPOTENSIVE. 18G TO RIGHT EJ PLACED. INSTRUCTED TO PREP PATIENT FOR EMERGENT CENTRAL LINE PLACEMENT.
[2019-07-29] MEDS ORDERED: FENTANYL CITRATE/PF 100MCG/2 ML INJ ONE (10:23)
[2019-07-29] MEDS ORDERED: ONDANSETRON HCL INJ 2MG/ML 2ML 2 MG/ML VIAL ONE (10:24)
[2019-07-29] MEDS ORDERED: PANTOPRAZOLE 40 MG 10ML VIAL IV ONE (10:30)
[2019-07-29 10:31] LABS: BASOPHILS # (AUTO) 0.1 (0.0-0.1); BASOPHILS % 0.3 % (0.0-1.0); EOSINOPHILS % 0.1 % (0.0-6.0); HEMATOCRIT 24.4 % (38.2-49.6); LYMPHOCYTES # (AUTO) 1.2 (1.0-3.2); LYMPHOCYTES % 3.1 % (18.0-39.1); MEAN CORPUSCULAR HEMOGLOBIN 22.8 pg (28-32); MEAN CORPUSCULAR HGB CONC 32.8 g/dL (31-35); MEAN CORPUSCULAR VOLUME 69.5 fL (81-99); MONOCYTES # (AUTO) 1.3 (0.2-0.8); MONOCYTES % 3.3 % (4.4-11.3); NEUTROPHILS # (AUTO) 35.5 (2.1-6.9); NEUTROPHILS % 91.4 % (38.7-80.0); PLATELET COUNT 302 x10e3/uL (140-360); RED BLOOD COUNT 3.51 x10e6/uL (4.3-5.7); RED CELL DISTRIBUTION WIDTH 19.8 % (11.7-14.4)
[2019-07-29 10:54] LABS: ALBUMIN 1.1 g/dL (3.5-5.0); ALBUMIN/GLOBULIN RATIO 0.3 (0.8-2.0); ANION GAP 19.5 mmol/L (8-16); CALCIUM 7.1 mg/dL (8.4-10.2); CREATINE KINASE 31 IU/L (30-200); CREATININE, SERUM 1.98 mg/dL (0.72-1.25); MAGNESIUM 2.1 MG/DL (1.3-2.1)
[2019-07-29 10:58] LABS: POTASSIUM 2.5 mmol/L (3.5-5.1)
[2019-07-29 10:59] LABS: PROTHROMBIN TIME 13.7 seconds (11.9-14.5)
[2019-07-29 11:15] LABS: THYROID STIMULATING HORMONE 1.719 uIU/mL (0.350-4.940)
[2019-07-29] MEDS ORDERED: POTASSIUM CHLORIDE 20MEQ/100ML 200 ML IV ONE (11:15)
[2019-07-29 11:17] LABS: PARTIAL THROMBOPLASTIN TIME 31.6 seconds (23.8-35.5)
[2019-07-29 11:19] LABS: BILIRUBIN,URINE NEGATIVE (NEGATIVE); CLARITY,URINE SL CLOUDY (CLEAR); COLOR,URINE YELLOW (YELLOW); KETONES,URINE NEGATIVE (NEGATIVE); LEUKOCYTE ESTERASE ,URINE NEGATIVE (NEGATIVE); NITRITE,URINE NEGATIVE (NEGATIVE); PROTEIN,URINE DIPSTICK NEGATIVE (NEGATIVE); URINE UROBILINOGEN 0.2 mg/dL (0.2 - 1)
[2019-07-29 11:24] LABS: BACTERIA,URINE MANY /HPF; EPITHELIAL CELLS,URINE MODERATE /LPF; MUCUS,URINE FEW (RARE)
[2019-07-29] MEDS ORDERED: VANCOMYCIN 1GM/NS 250 ML 250 ML IV ONE (11:30)
--- NOTE | 2019-07-29 11:47 | Diagnostic Imaging Report ---
EXAMINATION: CHEST SINGLE (PORTABLE) INDICATION: Abdominal pain, chest pain COMPARISON: None FINDINGS: LINES/TUBES:EKG leads overlie the chest. LUNGS:The left lung is nearly completely collapsed. Increased vascular markings in the right lung due to anatomic crowding. PLEURA:Large left tension pneumothorax. MEDIASTINUM:Mediastinal shift to the right. BONES/SOFT TISSUES:No acute osseous injury. ABDOMEN:No free air under the diaphragm. IMPRESSION: Left tension pneumothorax. Near complete collapse of the left lung. RECOMMENDATIONS: Needle thoracotomy/chest tube placement. The above findings were discussed with Dr. Riggs on 07/29/2019 11:40 AM, who responded indicating that the communication was understood. Signed by: Jenny Williamson MD on 07/29/2019 11:44 AM
[2019-07-29] MEDS ORDERED: LIDOCAINE 1% W/EPINEPHRINE 20 ML VIAL ONE (11:52)
[2019-07-29 12:32] LABS: LYMPHOCYTES % (MANUAL) 2 % (19-48); MONOCYTES % (MANUAL) 7 % (3.4-9.0); NEUTROPHILS % (MANUAL) 66 % (40-74)
[2019-07-29 12:33] LABS: ANISOCYTOSIS MODERATE; HYPOCHROMASIA MODERATE; MICROCYTOSIS MODERATE; POIKILOCYTOSIS MODERATE
[2019-07-29 12:34] LABS: OVALOCYTES FEW; PLATELET ESTIMATE ADEQUATE; PLATELET MORPHOLOGY COMMENT NORMAL; RBC MORPHOLOGY COMMENT ABNORMAL; TARGET CELLS FEW; TEAR DROP CELLS FEW
[2019-07-29 12:35] LABS: BAND NEUTROPHILS % (MANUAL) 22 %; METAMYELOCYTES % (MANUAL) 3 % (0-0)
[2019-07-29] MEDS: VANCOMYCIN 1GM/NS 250 ML 250 ML IV SCH (12:40)
[2019-07-29 13:26] LABS: ABG HCO3 23 mmol/L (23-28); ABG PCO2 39 mmHg (41-51); ABG PH 7.38 (7.31-7.41); ABG PO2 114 mmHg (80-105)
--- NOTE | 2019-07-29 13:30 | Diagnostic Imaging Report ---
EXAMINATION: CHEST SINGLE (PORTABLE) INDICATION: Chest tube placement COMPARISON: Chest radiograph of earlier the same day FINDINGS: Please note that the initial image was flipped and incorrectly marked. The image was subsequently corrected and resent. LINES/TUBES:Interval placement of left apical chest tube. EKG leads overlie the chest. LUNGS:Interval reexpansion of the left lung. Patchy opacities at the left lung base likely subsegmental atelectasis. Right lung base subsegmental atelectasis. PLEURA:Small residual peripheral left pneumothorax. No pleural effusion. MEDIASTINUM:Interval improvement in mediastinal shift. Heart size is at the upper limits of normal. BONES/SOFT TISSUES:No acute osseous injury. Subcutaneous emphysema along the left lateral chest wall at the chest tube insertion site. ABDOMEN:No free air under the diaphragm. IMPRESSION: Interval insertion of left apical chest tube with reexpansion of the left lung. Minimal residual peripheral left pneumothorax. Patchy opacities at both lung bases left greater than right, likely subsegmental atelectasis. Signed by: Jenny Williamson MD on 07/29/2019 1:27 PM
[2019-07-29] MEDS: METRONIDAZOLE 500MG/NS 100ML 100 ML IV SCH ×2 (17:23→22:07)
[2019-07-29 17:52] LABS: BASOPHILS # (AUTO) 0.1 (0.0-0.1); BASOPHILS % 0.2 % (0.0-1.0); HEMATOCRIT 21.9 % (38.2-49.6); LYMPHOCYTES # (AUTO) 0.6 (1.0-3.2); LYMPHOCYTES % 1.7 % (18.0-39.1); MEAN CORPUSCULAR HEMOGLOBIN 22.4 pg (28-32); NEUTROPHILS % 93.8 % (38.7-80.0); PLATELET COUNT 228 x10e3/uL (140-360); RED BLOOD COUNT 3.13 x10e6/uL (4.3-5.7); RED CELL DISTRIBUTION WIDTH 19.8 % (11.7-14.4)
[2019-07-29] MEDS ORDERED: ALBUMIN 25% 12.5GM 0.25 GM/ML BTL IV ONE (18:00)
[2019-07-29] MEDS ORDERED: HYDROCORTISONE SOD SUCCINATE 100 MG VIAL IV ONE (18:00)
[2019-07-29] MEDS ORDERED: DEXTROSE 50% SYRINGE 50 ML IV PRN (18:00)
[2019-07-29 18:07] LABS: ALBUMIN 0.9 g/dL (3.5-5.0); ALBUMIN/GLOBULIN RATIO 0.3 (0.8-2.0); ANION GAP 15.9 mmol/L (8-16); CREATININE, SERUM 1.73 mg/dL (0.72-1.25)
[2019-07-29 18:12] LABS: POTASSIUM 2.9 mmol/L (3.5-5.1)
--- NOTE | 2019-07-29 18:13 | NUR ---
RECEIVED PT AT THIS TIME PT ALERT, CHEST TUBE IN PLACE TO L SIDE CHEST CONNECTED TO LIWS.
[2019-07-29] MEDS ORDERED: SODIUM CHLORIDE 0.9% 250ML 250 ML IV ONE ×2 (18:30)
[2019-07-29] MEDS ORDERED: ALBUMIN 25% 12.5GM 50ML 100 ML IV ONE (18:30)
[2019-07-29] MEDS: SODIUM CHLORIDE 0.9% 1000ML 1,000 ML IV SCH (18:36)
--- NOTE | 2019-07-29 18:50 | NUR ---
NOTIFIED REGARDING CRITICAL K+ AND CALCIUM RECEIVED ORDERS, WILL CONTINUE TO MONITOR
[2019-07-29] MEDS ORDERED: POTASSIUM CHLORIDE 20MEQ/100ML 100 ML ONE (19:10)
[2019-07-29] MEDS ORDERED: POTASSIUM CHLORIDE 20MEQ/100ML 100 ML IV ONE ×2 (19:15→20:00)
[2019-07-29] MEDS: MORPHINE SULFATE INJ 4 MG/ML INJ 1ML IV PRN (19:55)
[2019-07-29] MEDS ORDERED: NOREPINEPHRINE INJ 4MG/4ML 8 MG in DEXTROSE 5% 250ML 250 ML IV SCH (20:00)
[2019-07-29] MEDS ORDERED: NOREPINEPHRINE 8 MG/D5W 250 ML 250 ML IV SCH (20:30)
[2019-07-29 21:21] LABS: BAND NEUTROPHILS % (MANUAL) 6 %; LYMPHOCYTES % (MANUAL) 1 % (19-48); METAMYELOCYTES % (MANUAL) 1 % (0-0); MONOCYTES % (MANUAL) 16 % (3.4-9.0); MYELOCYTES % (MANUAL) 1 % (0-0); NEUTROPHILS % (MANUAL) 75 % (40-74)
[2019-07-29 21:22] LABS: HYPOCHROMASIA MODERATE; PLATELET ESTIMATE ADEQUATE; PLATELET MORPHOLOGY COMMENT NORMAL
[2019-07-29 21:23] LABS: ANISOCYTOSIS MODERATE; POIKILOCYTOSIS SLIGHT; RBC MORPHOLOGY COMMENT ABNORMAL
[2019-07-29] MEDS ORDERED: HYDROMORPHONE 1MG/1ML INJ IV PRN (22:00)
[2019-07-29] MEDS ORDERED: MAGNESIUM SULFATE 2GM/50ML 50 ML IV ONE (22:00)
[2019-07-29] MEDS: CEFEPIME 2 GM/NS 0.9% 100 ML 100 ML IV SCH (22:07)
[2019-07-30] VITALS (26 sets, daily range): BP systolic 43–160; BP diastolic 28–113
[2019-07-30] MEDS: VANCOMYCIN 1GM/NS 250 ML 250 ML IV SCH ×2 (00:03→13:42)
[2019-07-30] MEDS: MORPHINE SULFATE INJ 4 MG/ML INJ 1ML IV PRN (00:04)
--- NOTE | 2019-07-30 01:16 | History and Physical ---
HISTORY OF PRESENT ILLNESS: See also ER notes. The patient presented to the emergency room acutely ill with dyspnea and weakness. He has a long history of ulcerative colitis and noncompliance. Years ago, he was prescribed Humira. He has had severe disease and has required transfusions in the past. He was off all prescription medicines for several months. He notes chronic recurrent diarrhea and hematochezia. The patient denies headache or visual change. Denies chest pain. He has had some discomfort since arrival as he has required chest tube lift for pneumothorax with almost completely collapsed lung. Occasional nausea. Denies symptoms. Neuromuscular, chronic back pain. Sedentary. History is not reliable as the patient has required intravenous morphine and fentanyl since arrival here for chest tube. See also prior visits here. PAST MEDICAL HISTORY: History includes primary hypertension. Hyperlipoproteinemia. Old T12 compression fracture with chronic back pain. Bilateral carpal tunnel syndrome. Prediabetes mellitus. ER glucose elevated 146. ALLERGIES: DENIES KNOWN DRUG ALLERGIES. SOCIAL HISTORY: Prior 1/2 pack of cigarettes daily. The patient states he stopped smoking recently. History is included prior stroke. See records here September 2017 and January 28, 2019. EGD 2011, gastroduodenitis. Normal heart cath 2010. Surgeries per patient, otherwise negative. As mentioned, severe tension pneumothorax, left, on admission, chest x-ray with a white count 61761. FAMILY HISTORY: Diabetes and hypertension. The patient is somewhat sedated, although he still has significant discomfort. EMR reviewed. PHYSICAL EXAMINATION: VITAL SIGNS: At 9:00 a.m. temperature 99.8. Blood pressure has been labile, up and down. Last blood pressure per computer at 1700 hours was 92/71, O2 saturation 98%, respiratory rate 22, pulse 109, regular. GENERAL: The patient is pale. Uncomfortable. Throat clear. NECK: Flexes. Carotids palpable. No palpable goiter. PULMONARY: Auscultation, scattered rales throughout the left. CARDIAC: Sounds S1, S2 soft. ABDOMEN: Tender. Bowel sounds 1+. No palpable mass or megaly. EXTREMITIES: Without edema, clubbing, or cyanosis. SKIN: Reveals 1 cm ulcer in the left hip area with three lesser lesions all with eschar. : Perirectal tenderness. Stool continues to be loose. Not bloody now. NEURO: DTRs depressed. Babinski is negative. Strength poor. INITIAL IMPRESSION: 1. Tension pneumothorax. Appreciate care per ER with placement of a chest tube with re-expansion. 2. White count 67620. 3. Ulcerative colitis. 4. Secondary anemia. 5. Hypokalemia. Potassium 2.5. Hemoglobin 8 g. Low indices. 6. Sodium low at 125. Albumin low at 1.1. Initial cardiac enzymes negative. 7. History of cerebrovascular accident. 8. Primary hypertension. 9. Hypotension, now compatible with septic shock. 10. Hyperlipoproteinemia. 11. Old compression fracture T12. 12. Bilateral carpal tunnel syndrome by history. 13. History of prediabetes mellitus with hyperglycemia now, 146. A1c 5.9 in March of 2014. 14. To support the patient with IV fluids. Followup chemistries and hematocrit. Blood as needed. Evaluate hyponatremia. The patient has been cultured. Urinalysis did reveal pyuria. 15. Skin wounds as above. Rule out hip disease. Avoid bedsores. 16. Prediabetes, to control blood sugars. 17. The patient may require pressure sores as mentioned. He will be followed up by GI and Pulmonary consultants. 18. The patient has required steroids in the past and may have an element of hypoadrenocorticism. To dispense steroid pulse today. Antibiotics ordered per ER appropriately. See serial orders. ICU admission. Further orders pending course and followup data. CAT scan of the abdomen, pelvis, chest pending. Consider abscess. Rule out pseudomembranous colitis in addition to known chronic ulcerative colitis. MD BRENDON Vicente/MODL /[id number]
[2019-07-30] MEDS: SODIUM CHLORIDE 0.9% 1000ML 1,000 ML IV SCH ×3 (02:04→18:00)
--- NOTE | 2019-07-30 02:32 | Consultation ---
DATE OF CONSULTATION: 07/29/2019 Pulmonary consultation. REASON FOR THE CONSULT: Chest tube management, possible pneumonia. HISTORY OF PRESENT ILLNESS: Mr. Souza is a 54-year-old male. He presented to the emergency room with abdominal discomfort. The patient is a regular patient of Dr. Riggs. He reported sharp pain in the left side of the abdomen and lower chest, that has been going on for two weeks, progressively getting worse. He has a history of ulcerative colitis. He is a heavy smoker, quit a month ago, smoked two packs per day for 30 years. He denies any chest pain, nausea, or vomiting. He underwent a CT of the chest in the emergency room. The official report is pending. It is showing left lower lobe cavity and the chest x-ray showed left-sided tension pneumothorax, for which a chest tube was placed. The patient also has multilobar infiltrates on the right side as well. Right now, the chest tube is draining pleural fluid. REVIEW OF SYSTEMS: GENERAL: Denies any fever or chills. HEAD: Denies any head trauma. ENT: Denies any earaches. CARDIOVASCULAR SYSTEM: Denies any chest pain. RESPIRATORY: Shortness of breath. The rest of the review of systems are negative except as in the HPI. PAST MEDICAL HISTORY: Hypertension, hyperlipidemia, and ulcerative colitis. PAST SURGICAL HISTORY: Surgery on the right thumb. Also has possibly history of stroke. FAMILY AND SOCIAL HISTORY: He has been a smoker and does not drink. His echo from 2017 showed EF of 55% to 60%. PHYSICAL EXAMINATION: VITAL SIGNS: Temperature 97.4, pulse of 113, blood pressure 92/71, respiratory rate is 18, and O2 saturation 94% on 2 L. HEENT: Head is atraumatic and normocephalic. NECK: Supple. CHEST: Crackles on the left side. HEART: S1 and S2 audible. ABDOMEN: Soft. EXTREMITIES: No pedal edema. NEUROLOGIC: He is awake, alert. LABORATORY DATA: White count of 34,000, hemoglobin 7.0, and platelets 228. Chemistry; sodium 128, potassium 2.9, BUN 42, creatinine 1.73. CT of the chest, I reviewed the images showing left-sided cavitary lesion and also showing multilobar infiltrates on the right side. ASSESSMENT: Mr. Souza is a 54-year-old male, came in with left-sided pain, found to have a tension pneumothorax, possibly septic, has leukocytosis, tachycardia, hypotension. Source is possibly multilobar pneumonia. CT abdomen is not officially reported and I am unable to read it. PLAN: 1. Continue the patient on broad-spectrum antibiotic. Agree with vanc, cefepime, and Flagyl. 2. The patient may need bronchoscopy at a later date once more stabilized. 3. Oxygen as needed to keep the O2 saturation more than or equal to 92%. 4. Replace electrolytes. 5. IV hydration. The patient has acute kidney injury. 6. Follow the blood cultures results. 7. Replace electrolytes. Critical care time spent 50 minutes. Thank you for this consult. MD REKHA Forbes/ADILENE /[id number]
--- NOTE | 2019-07-30 03:40 | NUR ---
Patient noted to be in bradycardia, unresponsive, no pulse palpable, agonal breathing, CPR initiated and code blue called
[2019-07-30] MEDS ORDERED: PROPOFOL IV EMULSION 10MG/ML 100 ML IV PRN (04:15)
--- NOTE | 2019-07-30 04:20 | NUR ---
Dr. Serna spoke with Dr. James during code, attempt x [address] Riggs and unable to reach answering service
[2019-07-30 04:22] LABS: BASOPHILS # (AUTO) 0.1 (0.0-0.1); BASOPHILS % 0.3 % (0.0-1.0); EOSINOPHILS % 0.1 % (0.0-6.0); HEMATOCRIT 29.1 % (38.2-49.6); LYMPHOCYTES # (AUTO) 1.4 (1.0-3.2); MEAN CORPUSCULAR HEMOGLOBIN 24.8 pg (28-32); MEAN CORPUSCULAR HGB CONC 30.9 g/dL (31-35); MONOCYTES # (AUTO) 1.1 (0.2-0.8); MONOCYTES % 3.4 % (4.4-11.3); NEUTROPHILS # (AUTO) 29.4 (2.1-6.9); NEUTROPHILS % 86.6 % (38.7-80.0); PLATELET COUNT 174 x10e3/uL (140-360); RED BLOOD COUNT 3.63 x10e6/uL (4.3-5.7); RED CELL DISTRIBUTION WIDTH 22.5 % (11.7-14.4)
[2019-07-30 04:26] LABS: MEAN CORPUSCULAR VOLUME 80.2 fL (81-99)
[2019-07-30 04:33] LABS: ABG PH 6.98 (7.31-7.41)
[2019-07-30 04:34] LABS: ABG HCO3 19 mmol/L (23-28); ABG PCO2 83 mmHg (41-51); ABG PO2 89 mmHg (80-105)
[2019-07-30 04:46] LABS: CREATINE KINASE 118 IU/L (30-200)
[2019-07-30 05:13] LABS: ALBUMIN 1.4 g/dL (3.5-5.0); ALBUMIN/GLOBULIN RATIO 0.5 (0.8-2.0); ANION GAP 20.4 mmol/L (8-16); CREATININE, SERUM 1.86 mg/dL (0.72-1.25); POTASSIUM 3.4 mmol/L (3.5-5.1)
[2019-07-30 05:27] LABS: CALCIUM 6.3 mg/dL (8.4-10.2)
[2019-07-30] MEDS: METRONIDAZOLE 500MG/NS 100ML 100 ML IV SCH ×3 (05:28→15:40)
--- NOTE | 2019-07-30 05:32 | NUR ---
RECEIVED CALL FROM RADIOLOGIST - PER CT THE PNEUMOTHORAX ON THE LEFT SIDE IS INCREASED IN SIZE AND POSSIBLY DISPLACING HEART. CONCERN FOR TENSION PNEUMOTHORAX, PROVIDED HIM WITH DIRECT NUMBER FOR DR GARCIA
--- NOTE | 2019-07-30 05:46 | Diagnostic Imaging Report ---
EXAM: CT Chest WITHOUT contrast INDICATION: Respiratory failure COMPARISON: Chest CT 07/29/2019 TECHNIQUE: Chest was scanned utilizing a multidetector helical scanner from the lung apex through the level of the adrenal glands without administration of IV contrast. Absence of intravenous contrast decreases sensitivity for detection of lymphadenopathy and vascular pathology. Coronal and sagittal reformations were obtained. Routine protocol was performed. IV CONTRAST: None COMPLICATIONS: None RADIATION DOSE: Total DLP: 558 mGy*cm Estimated effective dose: (DLP x 0.014 x size factor) mSv CTDIvol has been reviewed. It is below the limits set by the Radiation Protocol Committee (RPC). Dose modulation, iterative reconstruction, and/or weight based adjustment of the mA/kV was utilized to reduce the radiation dose to as low as reasonably achievable. FINDINGS: LINES/ TUBES: Left chest/pleural tube tip in the left pleural space apex. ET tube tip projects in the lower intrathoracic trachea. LUNGS AND AIRWAYS: Persistent bilateral patchy groundglass and consolidative opacities. A 6.2 cm air and fluid containing collection in the left lower lobe with a fluid fluid level. Worsening collapse of the left lung. Decreased volume of the right lung. PLEURA: Increased size of the now large left pneumothorax which displaces the mediastinum to the right hemithorax. Decreased size of the now small volume of left pleural fluid. HEART AND MEDIASTINUM: The thyroid gland is normal. No mediastinal, hilar or axillary lymphadenopathy. The heart is normal in size. Trace pericardial effusion. The mediastinum is displaced rightward, partially within the right hemithorax. Calcifications in the aortic arch and left coronary arteries. UPPER ABDOMEN: Unremarkable. BONES: New nondisplaced fractures of the anterior aspects of right ribs 5-8 and anterolateral aspects of left ribs 4-9. SOFT TISSUES: Persistent left chest wall subcutaneous emphysema.. IMPRESSION: 1. Increased size of a now large left pneumothorax with rightward mediastinal shift, concerning for developing tension pneumothorax. 2. Multifocal pneumonia with left lower lobe lung abscess. 3. New nondisplaced fractures of the anterior aspects of right ribs 5-8 and anterolateral aspects of left ribs 4-[address] on 07/29/2019, patient has had interval recent chest compressions. Findings discussed with ICU provider at 5:35 AM on 07/30/[address] Caal via telephone. Signed by: Taiwo Caal DO on 07/30/2019 5:43 AM
--- NOTE | 2019-07-30 05:46 | NUR ---
DR BUTT PERFORMED NEEDLE THORACOSTOMY TO RELEASE PRESSURE, IMMEDIATE BLOODY DRAINAGE FROM CHEST TUBE NOTED. DR GARCIA SPOKE WITH RADIOLOGIST AND REQUESTS SURGEON TO PLACE CHEST TUBE. SPOKE WITH DR Denisse SUNG. SPOKE WITH PRANAV NATION, ROOMMATE - HE STATES THAT THERE ARE NO FAMILY MEMBERS AVAILABLE.
--- NOTE | 2019-07-30 05:49 | Diagnostic Imaging Report ---
EXAMINATION: CHEST SINGLE (PORTABLE) INDICATION: Intubation COMPARISON: Chest CT 07/30/2019 FINDINGS: AP view TUBES and LINES: ET tube tip terminates in the lower intrathoracic trachea. Left chest /pleural tube with tip in the left apex. LUNGS: Persistent multifocal hazy airspace opacities. PLEURA: Increased size of left pneumothorax. HEART AND MEDIASTINUM: The mediastinum is mildly displaced rightward. BONES AND SOFT TISSUES: Left chest wall subcutaneous emphysema. No displaced rib fractures. UPPER ABDOMEN: No free air under the diaphragm. IMPRESSION: Left pneumothorax with mild rightward mediastinal shift. Multifocal pneumonia. Signed by: Taiwo Caal DO on 07/30/2019 5:45 AM
--- NOTE | 2019-07-30 06:30 | NUR ---
Dr Denisse Gambino in unit, portable cxr shows total resolution of pneumothorax, Dr Gambino spoke with Dr. James and consult placed for Dr. Romano. Dr. Romano states that he will be here around noon to assess patient. Dr. Niki Gambino debrided left perirectal abcess at bedside. Area packed with 1 betadine soaked 4x4 and covered with abd pads, may change dressing and repack with single betadine soaked 4x4 prn
[2019-07-30 06:36] LABS: LYMPHOCYTES % (MANUAL) 5 % (19-48); MONOCYTES % (MANUAL) 4 % (3.4-9.0); NEUTROPHILS % (MANUAL) 91 % (40-74)
[2019-07-30 06:37] LABS: ANISOCYTOSIS SLIGHT; PLATELET ESTIMATE SLIGHTLY DECREASED; RBC MORPHOLOGY COMMENT ABNORMAL
[2019-07-30] MEDS ORDERED: LIDOCAINE HCL 2% LOCAL 20 ML VIAL ONE (06:37)
--- NOTE | 2019-07-30 07:36 | Diagnostic Imaging Report ---
EXAMINATION: CHEST SINGLE (PORTABLE) INDICATION: Pneumothorax COMPARISON: Chest CT 07/30/2019 4:57 AM, chest radiograph 07/30/2019 4:14 AM FINDINGS: AP view TUBES and LINES: ET tube tip terminates in the mid intrathoracic trachea. Left pleural tube tip projects in the left upper hemithorax. LUNGS: Multifocal airspace opacities. Decreased lung volumes. PLEURA: Increased size of large left pneumothorax. HEART AND MEDIASTINUM: Rightward cardiomediastinal shift. BONES AND SOFT TISSUES: No acute osseous lesion. Moderate amount of left chest wall subcutaneous emphysema, increased compared to chest radiograph on 07/30/2019 4:14 AM UPPER ABDOMEN: No free air under the diaphragm. IMPRESSION: Increased size of left pneumothorax with rightward mediastinal shift. Multifocal pneumonia. Increasing left chest wall subcutaneous emphysema. Signed by: Taiwo Caal DO on 07/30/2019 7:33 AM
--- NOTE | 2019-07-30 08:23 | Consultation ---
DATE OF CONSULTATION: 07/30/2019 REASON FOR CONSULTATION: Tension pneumothorax,perirectal abscess. HISTORY OF PRESENT ILLNESS: The patient is a 54-year-old male admitted through the emergency room to Dr. Riggs's service with severe respiratory distress. He was found to have a pneumothorax and lung abscess. Chest tube was inserted in the emergency room and he was further admitted to the ICU for treatment of that. The patient while in the emergency room had a CT scan of the abdomen and pelvis because he had been complaining of abdominal pain. He has a history of ulcerative colitis. The patient was started on intravenous antibiotics. Pulmonary was consulted. GiI has been consulted also. The patient's CT scan incidentally showed a left perirectal gluteal abscess. Overnight, the patient coded. He was intubated. He underwent CPR and needle thoracostomy by ER staff . The patient was seen this morning by me. He was intubated. He has chest tube on the left chest that is functioning well. A repeat x-ray performed after I saw him revealed no significant tension pneumothorax PHYSICAL EXAMINATION: He is intubated. He is poorly responsive, he does not communicate, has not been sedated.He is hemodynamically stable On physical examination, there is a necrotic patch of skin, foul smelling,located in the left perirectal gluteal region. In addition to that, there is some dried gangrene superior in the mid gluteal region. The necrotic patch of skin along with necrotic subcutaneous fat was debrided at bedside. No undrained collection was found. The cavity was then irrigated with a Betadine and packed with an impregnated Betadine. Gauze dressing was applied. ASSESSMENT: Critically ill male, status post cardiorespiratory arrest with left lung abscess,pneumonia with a pneumothorax that has been treated with current chest tube. Left perirectal/gluteal abscess that was drained spontaneously. Status post by debridement of necrotic tissue in the left perirectal gluteal area. RECOMMENDATION: Recommendation is to continue intravenous antibiotics for both the soft tissue infection as well as the lungs. Discussed the case with Dr. James. Thoracic Surgery will be seeing the patient for further care of the pnemothorax MD AUGUSTINA Cardoso/ADILENE /[id number]
[2019-07-30] MEDS ORDERED: PANTOPRAZOLE 40 MG 10ML VIAL IV SCH (09:00)
[2019-07-30] MEDS: CEFEPIME 2 GM/NS 0.9% 100 ML 100 ML IV SCH (09:07)
[2019-07-30] MEDS ORDERED: ALBUMIN 25% 25GM 100ML 0.25 GM/ML BTL IV ONE (09:15)
[2019-07-30] MEDS ORDERED: ALBUMIN 25% 25GM 100ML 100 ML IV ONE (10:00)
[2019-07-30 10:28] LABS: ABG HCO3 19 mmol/L (23-28); ABG PCO2 59 mmHg (41-51); ABG PH 7.11 (7.31-7.41); ABG PO2 47 mmHg (80-105)
[2019-07-30] MEDS ORDERED: FUROSEMIDE INJ 10 MG/ML 4 ML VIAL IV ONE ×2 (10:45→17:15)
[2019-07-30 10:47] LABS: HEMATOCRIT 28.3 % (38.2-49.6)
--- NOTE | 2019-07-30 14:29 | Diagnostic Imaging Report ---
Chest, 1 view, 07/30/2019. History: Pneumothorax. Comparison: X-ray from earlier today at 5:57 AM. Findings: Diffuse bilateral linear opacities are present, slightly increased. Left-sided pneumothorax is more apparent measuring up to 2.1 cm laterally. Left-sided large caliber chest tube and ET tube are present. Left-sided subcutaneous emphysema is again noted. Impression: Increased bilateral pulmonary opacities and left-sided pneumothorax. Signed by: Angel Foster on 07/30/2019 2:26 PM
--- NOTE | 2019-07-30 14:53 | NUR ---
Wound care consultation attempted by wound care team today; patient is currently unstable with labored breathing, low b/p and jeremi stoking breathing pattern. O2 sat: in low 80s intermittently. Patient had a surgical debridement of a rectal abscess this morning; surgical dressing in place. Will re-attempt head to toe skin assessment tomorrow by wound care. Addendum: 07/30/19 at 1459 by Carola Rivas RN Amended: Links added.
--- NOTE | 2019-07-30 16:10 | NUR ---
dr wahl emergently placed a second chest tube no family at bedside. son previously notified of pt condition.
[2019-07-30] MEDS ORDERED: ALBUMIN 25% 12.5GM 0.25 GM/ML BTL IV ONE (17:15)
--- NOTE | 2019-07-30 17:15 | Diagnostic Imaging Report ---
Chest, 1 view, 07/30/2019. History: Left chest tube. Comparison: X-ray from earlier today. Findings: A large caliber chest tube is entering the left lateral chest and terminating near the apex. Minimal pneumothorax is visible at the left lung base. Left subcutaneous emphysema remains. ET tube is unchanged in position. Diffuse bilateral pulmonary opacities are present, slightly decreased. Impression: Interval replacement of left-sided chest tube with decreased left pneumothorax. Signed by: Angel Foster on 07/30/2019 5:12 PM
[2019-07-30] MEDS ORDERED: ALBUMIN 25% 12.5GM 50ML 100 ML IV ONE (17:30)
[2019-07-30 18:06] LABS: ABG HCO3 17 mmol/L (23-28); ABG PCO2 53 mmHg (41-51); ABG PH 7.11 (7.31-7.41); ABG PO2 55 mmHg (80-105)
[2019-07-30] MEDS ORDERED: ALBUMIN 5% 0.05 GM/ML BTL IV NR (18:30)
[2019-07-30] MEDS ORDERED: SODIUM BICARBONATE 8.4% SYRING 150 ML in DEXTROSE 5% 1,000 ML IV SCH (18:30)
[2019-07-30] MEDS ORDERED: BUMETANIDE INJ 0.25MG/ML 4ML VIAL IV STA (18:30)
[2019-07-30 18:39] LABS: ANION GAP 16.8 mmol/L (8-16); CREATININE, SERUM 2.56 mg/dL (0.72-1.25); POTASSIUM 3.8 mmol/L (3.5-5.1)
[2019-07-30 18:40] LABS: CALCIUM 6.2 mg/dL (8.4-10.2)
--- NOTE | 2019-07-30 18:42 | NUR ---
bladder scan completed. no urine identified
[2019-07-30 18:52] LABS: ALBUMIN 2.2 g/dL (3.5-5.0)
[2019-07-30] MEDS ORDERED: CALCIUM GLUCONATE 10% INJ 4.65 MEQ in SODIUM CHLORIDE 0.9% 50ML 50 ML IV ONE (19:15)
[2019-07-30] MEDS ORDERED: BUMETANIDE 10 MG in SODIUM CHLORIDE 0.9% 100 ML 60 ML IV SCH (19:30)
[2019-07-30] MEDS ORDERED: VASOPRESSIN 100 UNIT in DEXTROSE 5% 100ML 95 ML IV SCH (20:45)
[2019-07-30] MEDS ORDERED: NOREPINEPHRINE 8 MG/D5W 250 ML 250 ML IV SCH (20:45)
--- NOTE | 2019-07-30 20:46 | NUR ---
DR GARCIA INFORMED OF LOW BP AND 1800 ABG RESULTS, NEW ORDERS NOTED
--- NOTE | 2019-07-30 20:49 | NUR ---
CALL PLACED FOR DR GARDUNO TO CONFIRM HE WAS NOTIFIED OF CONSULT, AWAITING RETURN CALL
--- NOTE | 2019-07-30 20:50 | Diagnostic Imaging Report ---
EXAM: Renal Ultrasound INDICATION: ^calvin include bladder COMPARISON: CT abdomen and pelvis 07/29/2019 TECHNIQUE: Transverse and longitudinal images of the kidneys and bladder were obtained. FINDINGS: Right Kidney: Length: 9.4 cm Appearance: Normal echogenicity. Collecting system: No hydronephrosis Stones: None Cyst/Mass: None Left Kidney: Length: 9.7 cm Appearance: Normal echogenicity. Collecting system: No hydronephrosis Stones: None Cyst/Mass: None Bladder: Tucker catheter in place. IMPRESSION: Normal renal ultrasound exam. Signed by: Dr. Clover Araiza M.D. on 07/30/2019 8:47 PM
--- NOTE | 2019-07-30 21:00 | NUR ---
SPOKE WITH DR GARDUNO - HE WILL SEE PATIENT TOMORROW
[2019-07-30] MEDS ORDERED: PHENYLEPHRINE 10MG/ML VIAL 40 MG in DEXTROSE 5% 250ML 246 ML IV PRN (21:30)
[2019-07-30] MEDS ORDERED: VASOPRESSIN INJ 20 UNIT/ML VIAL ONE (21:32)
[2019-07-30] MEDS ORDERED: NOREPINEPHRINE 8 MG/D5W 250 ML 250 ML IV PRN (21:45)
[2019-07-30] MEDS ORDERED: VASOPRESSIN 100 UNIT in DEXTROSE 5% 100ML 95 ML IV PRN (22:00)
--- NOTE | 2019-07-30 22:15 | NUR ---
PATIENT HR RATE SLOWED AND STOPPED AT 2206 - ASYSTOLE ON MONITOR - CPR INITIATED AND CODE BLUE CALLED. ROSC AT 2210. DR GARCIA NOTIFIED. ATTEMPTED TO NOTIFY NEXT OF KIN - MESSAGE LEFT ON VOICE MAIL
[2019-07-30] MEDS ORDERED: EPINEPHRINE HCL 1:1000 1ML 4 MG in DEXTROSE 5% 250ML 250 ML IV SCH (23:08)
[2019-07-30] MEDS ORDERED: EPINEPHRINE HCL SYRINGE ONE (23:15)
[2019-07-30] MEDS ORDERED: DEXTROSE 5% 250ML 250 ML IV ONE (23:15)
--- NOTE | 2019-07-30 23:15 | NUR ---
PATIENT WITH ASYSTOLE, CPR INITIATED AND CODE BLUE CALLED. DR GARCIA INFORMED, MESSAGE LEFT ON VOICE MAIL FOR NEXT OF KIN SCOTTIE FLYNN, SON. CALL PLACED TO DR RODRIGUEZ, PER ER MD REQUEST TO ASK ABOUT HAVING [employer] RESUSCITATION ATTEMPTS FUTILE AND MAKING PATIENT DNR. DR RODRIGUEZ SAID HE WAS IN CONCURRENCE WITH THAT DECISION BUT TO SPEAK WITH DR GARCIA. DR GARCIA DOES NOT AGREE TO MAKING PATIENT A DNR.
--- NOTE | 2019-07-30 23:27 | Operative Report ---
DATE OF PROCEDURE: 07/30/2019 SURGEON: Judah Romano MD PREOPERATIVE DIAGNOSES: Pneumothorax, respiratory insufficiency. POSTOPERATIVE DIAGNOSES: Pneumothorax, respiratory insufficiency. OPERATIVE PROCEDURE: Insertion left chest tube. INDICATIONS: This is a 54-year-old man in the ICU with profound respiratory insufficiency. He has a persistent left-sided pneumothorax despite the placement of a chest tube in the emergency room. Repeat chest tube placement is now planned. Nursing staff talked to his son who is estranged and he gave permission for the procedure. The patient is intubated, sedated, and not competent to give consent. DESCRIPTION OF PROCEDURE: Left chest tube inserted at the bedside under sterile conditions. Local anesthesia utilized. A #32 argyle tube inserted into the left pleural space uneventfully. Approximately 300 mL of cloudy fluid returned. Large air leak in the chest tube. The old chest tube was also left in place. It had come somewhat loose and was reaffixed using 0 silk suture. Sterile dressing was applied. The patient tolerated procedure without difficulty. Chest x-ray was requested. Judah Romano MD GVL/MODL /[id number]
--- NOTE | 2019-07-30 23:42 | Consultation ---
DATE OF CONSULTATION: 07/30/2019 REASON FOR CONSULT: Respiratory insufficiency, left pneumothorax; requested by Dr. Candis James. HISTORY OF PRESENT ILLNESS: I saw and evaluated this patient on July 30, 2019. He is a 54-year-old man, who presented to the emergency room with abdominal discomfort. He is a patient of Dr. Riggs. He had had sharp pain in the abdomen, which had been going on for several weeks. It had been progressively worsening. There is a history of ulcerative colitis and he is a heavy smoker. He was smoking 2 packs per day and quit about a month ago. A CT of the chest and abdomen was performed in the emergency room. Chest x-ray and CT scan were obtained in the emergency room. There was a left-sided pneumothorax. A chest tube was placed. There were multilobular infiltrates bilaterally. The pneumothorax has worsened over the last 24 hours and he had an episode of hypotension with worsening of the pneumothorax in the functional support analyst hours. Currently, the patient is ventilated, he is on 10 of Levophed, he is not responsive. FiO2 is at 100%. The chest tube is functioning acceptably well, but a repeat chest x-ray obtained at noon shows a larger pneumothorax. PAST MEDICAL HISTORY: Positive for hypertension, hyperlipidemia, ulcerative colitis. Positive for heavy smoking. SURGICAL HISTORY: Positive for a possible history of stroke. He has had right thumb surgery. SOCIAL HISTORY: 2-pack per day smoker. Apparently, no drinking. An echo from 2017, showed EF of 55% to 60%. FAMILY HISTORY: Negative for early coronary artery disease. ALLERGIES: NONE KNOWN. MEDICATIONS: See MAR. REVIEW OF SYSTEMS: Unobtainable because the patient is intubated. PHYSICAL EXAMINATION: GENERAL: A chronically ill-appearing patient, intubated in the ICU. VITAL SIGNS: Blood pressure 110/70. The patient is on Levophed at 10. Respirations 16 on the ventilator. Pulse is 90 and regular. NECK: Supple. Nontender. No JVD. CARDIAC: Has a regular rate and rhythm. No murmur or rub. LUNGS: Have coarse bilateral rhonchi and ventilator sounds. The chest tube was in place and has a substantial air leak. ABDOMEN: Globoid. Nontender. BACK: No CVA tenderness. No muscular spasm. EXTREMITIES: No cyanosis, clubbing, or edema. They are cool. VASCULAR: Carotids 2+/2+ bilaterally. Radials and femorals 1+/2+ bilaterally. SKIN: Dry and without edema. MUSCULOSKELETAL: Full range of motion at all joints. No joint swelling. NEUROLOGIC: Intubated and sedated. LYMPHATIC: Negative for cervical, clavicular, femoral adenopathy. LABORATORIES: Chest x-ray and CT scan are reviewed and as are above. IMPRESSION: Respiratory insufficiency. The patient is intubated on FiO2, 100%. There is a substantial left pneumothorax despite the chest tube. New chest tube will be inserted. The patient is critically ill. Respiratory insufficiency is profound. MD CASPER VillanuevaL/MODL /[id number]
[2019-07-31] VITALS: BP 170/76
[2019-07-31] MEDS: CEFEPIME 2 GM/NS 0.9% 100 ML 100 ML IV SCH (00:15)
[2019-07-31] MEDS: METRONIDAZOLE 500MG/NS 100ML 100 ML IV SCH (00:15)
--- NOTE | 2019-07-31 00:20 | NUR ---
ASYSTOLE AT 2359, CPR INITIATED AND SURENDRA MAC CALLED, ROSC AT 0002.
[2019-07-31 00:41] LABS: CREATININE, SERUM 3.44 mg/dL (0.72-1.25)
[2019-07-31 00:58] LABS: CALCIUM 6.7 mg/dL (8.4-10.2)
[2019-07-31 01:00] VITALS: BP 170/95
--- NOTE | 2019-07-31 01:07 | NUR ---
ASYSTOLE AT 0101, CPR INITIATED AND CODE BLUE CALLED, ROSC AT 010
--- NOTE | 2019-07-31 01:08 | Consultation ---
DATE OF CONSULTATION: 07/30/2019 HISTORY OF PRESENT ILLNESS: Mr. Harley Denis is a 54-year-old gentleman, who apparently presented to the emergency room with shortness of breath, found to have pneumothorax, had a chest tube placed, subsequently had a cardiorespiratory arrest and then resuscitated, had another chest tube placed by Dr. Romano. Currently intubated, unresponsive, anuric, renal consult for management of acute kidney injury. No prior history of kidney disease reported at the moment or available. No family available. He has a partner and a son. None of them are available at this point in time. He also had a perirectal abscess, which was operated upon by Dr. Brendon Gambino, please see his notes for detail. He is intubated, unable to follow any commands. Unable to get review of system. He is currently on Levophed for shock. ALLERGIES: HE HAS NO DRUG ALLERGIES. MEDICATIONS: Has been started on Flagyl, pantoprazole, hydromorphone p.r.n., cefepime, ondansetron p.r.n., and currently on vancomycin 1 g IV q.12. He is also on Zofran p.r.n. He has had blood and urine cultures sent, they are pending. LABORATORY TEST: Shows white count of 38,000, hemoglobin of 10 with a sodium 133, potassium 3.4, bicarbonate 18, BUN 41, creatinine 1.8, calcium 6.3, magnesium 1.8, repeat 2.8, albumin 1.4. Troponin I less than 0.001. PHYSICAL EXAMINATION: GENERAL: The patient is a smoker and drinks as well exactly how much that information not available to me at the moment. VITAL SIGNS: Blood pressure is 98/72, pulse rate 110, sinus tachy. Respiratory, the patient breathing with the ventilator. HEAD AND NECK: . Poor muscle mass. Pupils responsive, symmetric. Orally intubated. Skin turgor poor. Lungs: Harsh vesicular breath sounds with end-expiratory rhonchi and conducted sounds, left side more than right. HEART: S1, S2 audible. Tachycardic rhythm. ABDOMEN: Soft, distended, nontender. EXTREMITIES: Lower extremity examination shows no edema. IMPRESSION AND PLAN: Acute kidney injury, acute tubular necrosis in the patient status post cardiorespiratory arrest, now mildly hyponatremic, hypokalemic, and acidotic hypocalcemic as well with an albumin 1.4. Serum calcium corrects to approximately 7.4. Plan on discontinuing schedule vancomycin because of aneuric state. We will obtain a stat kidney and bladder ultrasound. We will obtain a stat BMP right now. I will start IV bicarbonate. Chest x-ray noted, two chest tubes on the left side noted. Repeat chemistries, nurse to call me with the results. I will correct electrolyte deficits if present. We will also give Bumex 2 mg IV stat and then I will give 5% albumin first, discontinue existing IV normal saline. We will give 500 mL of 5% albumin, IV Stadol 4 hours, thereafter attempt diuresis with Bumex. Overall prognosis poor. Consult Infectious Disease. MD SONIA Echols/ADILENE /[id number]
--- NOTE | 2019-07-31 01:14 | NUR ---
DR BUTT SPOKE WITH DR RODRIGUEZ ON TELEPHONE, BOTH AGREE THAT FURTHER RESUSCITATION EFFORTS ARE FUTILE. PATIENT TO BE MADE DNR STATUS.
--- NOTE | 2019-07-31 01:23 | NUR ---
PATIENT PRONOUNCED AT THIS TIME BY DR BUTT
--- NOTE | 2019-07-31 02:34 | NUR ---
DR RODRIGUEZ NOTIFIED AT 0136. PRANAV NATION, FRIEND NOTIFIED AT 0125, HE WILL F[employer]ANCE WEB DESIGN[employer] PATIENT'S BELONGINGS SOMETIME TODAY. HE STATES THAT PATIENT HAS NO FUNDS FOR BURIAL AND THAT NO ARRANGEMENTS HAVE BEEN MADE, INFORMED HIM THAT [facility] WOULD BE NOTIFIED TO [employer] DES[employer] REMAINS. VOICE MAIL LEFT FOR PATIENT'S SON, SCOTTIE BARTH AT 0128. LIFE GIFT RELEASED BODY AT 0149. [facility] SERVICES NOTIFIED TO F[employer] DES[employer] REMAINS AT 0150.
--- NOTE | 2019-07-31 02:53 | NUR ---
INFORMATION ENTERED INTO LOG FOR PATIENT'S WHO WITHIN 24 HRS OF RESTRAINT DISCONTINUATION
--- NOTE | 2019-07-31 03:11 | NUR ---
REMAINS PICKED UP BY [facility]
[2019-07-31] MEDS ORDERED: ATROPINE SULFATE 0.1 MG/ML 10ML SYR ONE (18:17)
[2019-07-31] MEDS ORDERED: EPINEPHRINE HCL SYRINGE ONE ×2 (18:17→18:21)
[2019-07-31] MEDS ORDERED: SODIUM BICARBONATE 8.4% 50 ML VIAL ONE ×2 (18:17→18:21)
[2019-07-31] MEDS ORDERED: SUCCINYLCHOLINE CHLORIDE 20 MG/ML 10ML VIAL ONE (18:20)
--- NOTE | 2019-08-01 08:40 | Discharge Summary ---
HOSPITAL COURSE: The patient required hospitalization through the emergency room, acutely ill. He had multiple adverse symptoms including symptoms of his chronically untreated ulcerative colitis. He had not been taking his prescription medications and had not attended office visits to my office for two years. 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 He had chronic diarrhea and intermittent bloody stools with abdominal discomfort. The patient also noted shortness of breath. He was acutely ill on arrival. See also ER notes, H and P, and consultations. He required tube thoracostomy on the left for large left pneumothorax. The patient continued to have difficulty with his pneumothorax throughout the hospital stay and required placement of a 2nd tube thoracostomy by his consulting thoracic surgeon, Dr. Romano. Database was obtained and monitored. The patient required analgesics for discomfort in the left chest tube area. Experienced progressive hypotension and septic shock. He required support with IV fluids and vasopressors, but continued with mixed acidosis, severe. He required intubation with ventilatory support. He was cultured and dispensed broad-spectrum antibiotics. He was also seen by his general surgeon in consultation. He was followed by his escrow processor and charge nurse while here, see notes. He required debridement of a perirectal-gluteal abscess. See notes per his consulting general surgeon. Hypokalemia was repleted cautiously. This patient had renal insufficiency and developed progressive oliguria. He was seen by consultants in Nephrology, see notes and recommendations. See also serial orders per EMR. Blood sugars were monitored and treated medically. Hypokalemia and hyponatremia responded to IV fluids. The patient continued without response to medical therapy and experienced recurrent cardiorespiratory arrest, requiring CPR. Ultimately, he did in the Intensive Care Unit. White count on July 29 was 34,111. Hemoglobin 7 g prior to transfusion. Low indices. Platelet count is normal. Left shift of white count. Persistent acidosis on serial blood gases marked. PH 6.9 on July 29. The patient was administered bicarb and ventilated as mentioned. IV fluids were continued. Cardiac enzymes revealed no evidence of MA. On July 30, white count 33,900. Hemoglobin 9 g. Admission potassium 2.5, improved. TSH normal. INR 1.0. He also had imaging reports confirming transient improvement in pneumothorax, post tube thoracostomy with later recurrence. Chest CT with left pulmonary abscess versus large bulla. Abdominal CT with advanced ulcerative colitis with pseudopolyposis. Gluteal perirectal abscess. FINAL IMPRESSION: Tension pneumothorax, recurrent. Sepsis with shock. Ulcerative colitis. Secondary anemia. Hypokalemia. Hyponatremia. Hypoalbuminemia with admission albumin 1.1. Primary hypertension prior to admission. Cerebrovascular accident, old. Hyperlipoproteinemia. Old compression fracture at T12. Bilateral carpal tunnel syndrome by history. Prediabetes mellitus. Suspected pulmonic abscess versus large bulla. Perirectal, gluteal abscess. Respiratory failure. Acidosis marked. Tube thoracostomy x2. MD BRENDON Vicente/MODL /[id number]
--- NOTE | 2019-08-01 08:56 | Diagnostic Imaging Report ---
TECHNIQUE: CT of the chest, abdomen, and pelvis WITHOUT intravenous contrast and WITHOUT oral contrast. Dose modulation, iterative reconstruction, and/or weight-based adjustment of the mA/kV was utilized to reduce the radiation dose to as low as reasonably achievable. INDICATION: 54-year-old man with chest pain and history of ulcerative colitis. COMPARISON: None. FINDINGS: ABSENCE OF INTRAVENOUS CONTRAST DECREASES SENSITIVITY FOR DETECTION OF FOCAL LESIONS AND VASCULAR PATHOLOGY. LINES/TUBES: Left chest tube in place. Tucker catheter terminates in the urinary bladder. Right femoral venous catheter terminates in the right external iliac vein. LUNGS AND AIRWAYS: Small amount of mucus/debris in the trachea. Left greater than right bilateral consolidative and groundglass opacities, most prominent in the left lower lobe. 4.2 x 4.8 cm predominantly air-filled structure in the left lower lobe with a small air-fluid level. PLEURA: Left hydropneumothorax with small pneumothorax component and small pleural effusion component. HEART AND MEDIASTINUM: The visualized thyroid gland is normal. No significant mediastinal, hilar, or axillary lymphadenopathy. Mild atherosclerotic calcifications in the thoracic aorta and coronary arteries. HEPATOBILIARY: Decreased attenuation of the liver, consistent with hepatic steatosis. No focal hepatic lesions. Gallbladder is unremarkable. No biliary ductal dilatation. SPLEEN: No splenomegaly. PANCREAS: No focal masses or ductal dilatation. ADRENALS: No adrenal nodules. KIDNEYS/URETERS: No hydronephrosis, stones, or solid mass lesions. PELVIC ORGANS/BLADDER: The bladder is decompressed. Air in the bladder lumen, likely from catheterization. Prostate and seminal vesicles are grossly unremarkable. PERITONEUM/RETROPERITONEUM: No free air or fluid. LYMPH NODES: No lymphadenopathy. VESSELS: Atherosclerotic vascular calcifications in the abdominal aorta and bilateral iliac arteries without aneurysm. GI TRACT: Thickened wall throughout the colon with pseudopolyps throughout the transverse colon. The appendix is prominent and measures 0.9 cm in caliber. No bowel obstruction. BONES AND SOFT TISSUES: Degenerative changes of the visualized spine. Age indeterminate compression deformity of L4 vertebral body with approximately 40% height loss and without significant retropulsion. Age indeterminate compression deformity of the T12 vertebral body with approximately 20% height loss and without significant retropulsion. Healed fracture of the lateral left ninth rib Large amount of air in the soft tissues of the left chest wall. Air in the left intersphincteric perirectal region which extends into the ischiorectal fossa as well as in the soft tissues along the left gluteal cleft. IMPRESSION: Chest CT: * Bilateral consolidative and groundglass opacities, likely multifocal pneumonia. 4.8 cm air and fluid containing structure in the left lower lobe, suspicious for pulmonary abscess. * Small left hydropneumothorax. Abdomen and pelvis CT: * Thickened wall of the colon with pseudopolyps throughout the transverse colon, which likely correlates with reported ulcerative colitis. No bowel obstruction. * Air in the perirectal region extending into the ischiorectal fossa as well as in the soft tissues along the left gluteal cleft, suspicious for perirectal abscess. * Age-indeterminate compression deformities, moderate at L4 and mild at T12. * Hepatic steatosis. Signed by: Orlin Frye MD on 07/29/2019 3:59 PM
== END 2019-07-31 03:12 | disposition expired | DRG 853 ==
LOC: ER 08:47 → ERHOLD 09:47 → ICU 18:15
PROVIDERS: ADMIT Internal Medicine; ATTEND Internal Medicine
PROC: 0W9B30Z Drainage of Left Pleural Cavity with Drainage Device, Percutaneous Approach (ICD-10-PCS; 2019-07-29)
PROC: 30233N1 Transfusion of Nonautologous Red Blood Cells into Peripheral Vein, Percutaneous Approach (ICD-10-PCS; 2019-07-29)
PROC: 0W9B30Z Drainage of Left Pleural Cavity with Drainage Device, Percutaneous Approach (ICD-10-PCS; principal; 2019-07-30)
PROC: 0DBP0ZZ Excision of Rectum, Open Approach (ICD-10-PCS; 2019-07-30)
PROC: 0BH18EZ Insertion of Endotracheal Airway into Trachea, Via Natural or Artificial Opening Endoscopic (ICD-10-PCS; 2019-07-30)
PROC: 5A1935Z Respiratory Ventilation, Less than 24 Consecutive Hours (ICD-10-PCS; 2019-07-30)
DX: A41.9 Sepsis, unspecified organism (principal); R65.21 Severe sepsis with septic shock; J93.0 Spontaneous tension pneumothorax; J96.90 Respiratory failure, unspecified, unspecified whether with hypoxia or hypercapnia; J85.1 Abscess of lung with pneumonia; N17.0 Acute kidney failure with tubular necrosis; E87.1 Hypo-osmolality and hyponatremia; K51.911 Ulcerative colitis, unspecified with rectal bleeding; E87.2 Acidosis; K61.1 Rectal abscess; E24.9 Cushing's syndrome, unspecified; I96 Gangrene, not elsewhere classified; L97.121 Non-pressure chronic ulcer of left thigh limited to breakdown of skin; E87.6 Hypokalemia; I10 Essential (primary) hypertension; D64.9 Anemia, unspecified; E78.5 Hyperlipidemia, unspecified; I46.9 Cardiac arrest, cause unspecified; M48.54XD Collapsed vertebra, not elsewhere classified, thoracic region, subsequent encounter for fracture with routine healing; E83.51 Hypocalcemia; F17.210 Nicotine dependence, cigarettes, uncomplicated; G56.03 Carpal tunnel syndrome, bilateral upper limbs; R73.03 Prediabetes; Z86.73 Personal history of transient ischemic attack (TIA), and cerebral infarction without residual deficits
CPT/HCPCS: 31500; 32551; 36415; 36555; 36600; 51700; 71045; 71250; 74176; 76770; 80048; 80053; 81001; 82150; 82550; 82553; 82805; 83036; 83605; 83690; 83735; 83880; 83935; 84100; 84300; 84443; 84484; 85014; 85018; 85025; 85610; 85730; 86850; 86900; 86920; 87040; 87071; 87086; 87205; 92950; 93005; 93306; 94002; 99285; J0171; J0330; J0610; J1170; J1720; J1940; J2001; J2270; J2370; J2405; J3010; J3370; J3475; J3480; J7030; J7050; J7070; P9016; P9045; P9047